=== PATIENT | female | born 1965 | race Caucasian/White ===

== ENCOUNTER → 2020-05-21 11:10 | Outpatient (BNVA) | payer OTHER, SELFPAY | PROVIDERS: PCP Internal Medicine; Referring Provider Internal Medicine; Visit Provider Internal Medicine | DX: Z76.89 Persons encountering health services in other specified circumstances (principal) ==

== ENCOUNTER 2020-07-10 20:12 | Emergency (ER) | payer OTHER, SELFPAY ==
--- NOTE | 2020-07-10 | ECG_ITS ---
Test Reason : GI BLEED Blood Pressure : / mmHG Vent. Rate : 048 BPM Atrial Rate : 048 BPM P-R Int : 126 ms QRS Dur : 078 ms QT Int : 464 ms P-R-T Axes : 070 065 063 degrees QTc Int : 414 ms Sinus bradycardia with Premature atrial complexes Otherwise normal ECG When compared with ECG of 31-JAN-2017 14:40, Premature atrial complexes are now Present Nonspecific T wave abnormality no longer evident in Inferior leads Nonspecific T wave abnormality, improved in Anterior leads Referred By: Generic ED Physician Electronically Signed By:JOSEPH ASHBY
[2020-07-10 20:26] VITALS: BP 133/67; PULSE 79; RESP 18; TEMP 36.6; O2SAT 100; BMI 25.7
[2020-07-10 20:51] LABS: Basophils Absolute Auto 0.1 X10*3/uL (0.0-0.2); Basophils Percent Auto 0.8 % (0-2); Eosinophils Absolute Auto 0.2 X10*3/uL (0.0-0.4); Eosinophils Percent Auto 3.4 % (0-4); Hematocrit 39.7 % (37-47); Hemoglobin 13.3 g/dl (12.0-16.0); Imm Gran Abs Auto 0.01 X10*3/uL (0.00-0.03); Imm Gran Pct Auto 0.2 % (0.0-0.4); Lymphocytes Absolute Auto 3.3 X10*3/uL (1.2-4.9); Lymphocytes Percent Auto 54.2 % (20-40); MANUAL DIFF FLAG NO; Mean Corpuscular HGB Conc 33.5 g/dl (31.0-35.0); Mean Corpuscular Hemoglobin 28.9 pg (27.0-33.0); Mean Corpuscular Volume 86.1 fL (80-98); Mean Platelet Volume 10.8 fL (9.4-12.3); Monocytes Absolute Auto 0.5 X10*3/uL (0.1-1.2); Monocytes Percent Auto 8.4 % (2-11); Platelet Count 262 X10*3/uL (160-400); Red Blood Count 4.61 X10*6/uL (4.20-5.50); Red Cell Distribution Width 13.2 % (11.0-16.0); White Blood Count 6.2 X10*3/uL (4.8-10.8)
[2020-07-10 21:20] LABS: Anion Gap 13 (12-20); Blood Urea Nitrogen 17 mg/dL (9-16); Calcium 8.8 mg/dL (8.4-10.2); Carbon Dioxide 28 mmol/L (22-29); Chloride 99 mmol/L (96-108); Creatinine Clr Calc Pharmacy 75.3; Estimated Glomerular Filt Rate > 60; Glucose Random 89 mg/dL (60-115); Lipase 57 U/L (8-78); Potassium 3.8 mmol/L (3.3-5.1); Sodium 136 mmol/L (135-145)
[2020-07-10 21:26] LABS: Troponin-I High Sensitivity < 3.5 ng/L (<3.5-17.0)
[2020-07-10 21:58] LABS: Glucose Urine UA NEG (NEG); Leukocyte Esterase Urine TRACE (NEG); Nitrite Urine NEG (NEG); PH 5.5 (5.0-8.0); Specific Gravity - Urine <= 1.005 (1.005-1.025); Urine Blood NEG (NEG); Urine Ketones 5 MG/DL (NEG); Urine Protein NEG (NEG-TRACE)
[2020-07-10 21:59] LABS: Appearance Urine CLEAR; Color Urine STRAW
[2020-07-10 22:06] LABS: Bacteria Urine TRACE /LPF; RBC Urine 0 /HPF (0); WBC Urine 0-2 /HPF (0-4)
== END 2020-07-10 23:17 | disposition left against medical advice (07) ==
PROVIDERS: Emergency Provider Emergency Medicine; PCP Internal Medicine
DX: R31.9 Hematuria, unspecified (principal)
CPT/HCPCS: 36415; 80048; 81001; 83690; 84484; 85025; 93005; 99282; 99283

== ENCOUNTER 2020-07-14 08:53 | Outpatient (REF) | payer OTHER, SELFPAY ==
[2020-07-14 10:16] LABS: Alanine Aminotransferase 9 U/L (0-31); Albumin Level 4.5 g/dL (3.5-5.0); Alkaline Phosphatase 52 U/L (39-117); Aspartate Amino Transferase 16 U/L (5-31); Bilirubin Direct 0.2 mg/dL (0.0-0.5); Bilirubin Total 0.7 mg/dL (0.0-1.0); Cholesterol 289 mg/dL; HDL Cholesterol 44 mg/dL; LDL Cholesterol Calculated 218 mg/dl; Total Protein 7.7 g/dL (6.5-8.0); Triglycerides 136 mg/dL
[2020-07-14 11:05] LABS: Estimated Average Glucose 123 mg/dL; Hemoglobin A1c % 5.9 %
[2020-07-15 09:07] LABS: LDL Cholesterol Direct 203 mg/dL (<100)
== END 2020-07-14 08:54 | disposition home or self-care (01) ==
LOC: HO.LAB 08:53
PROVIDERS: Absent Provider Internal Medicine; PCP Internal Medicine; Visit Provider Internal Medicine
DX: E78.5 Hyperlipidemia, unspecified (principal); E66.9 Obesity, unspecified; R73.03 Prediabetes; D35.2 Benign neoplasm of pituitary gland
CPT/HCPCS: 36415; 80061; 80076; 83036; 83721; 99212

== ENCOUNTER → 2020-07-15 07:40 | Outpatient (BNVA) | payer OTHER, SELFPAY | PROVIDERS: PCP Internal Medicine; Visit Provider Dietitian, Registered ==

== ENCOUNTER → 2020-08-19 11:12 | Outpatient (BNVA) | payer OTHER, SELFPAY | PROVIDERS: PCP Internal Medicine; Visit Provider Dietitian, Registered ==

== ENCOUNTER 2021-04-21 02:16 | Emergency (ER) | payer OTHER, SELFPAY ==
[2021-04-21 02:18] VITALS: BP 129/86; PULSE 62; RESP 15; TEMP 36.7; O2SAT 98; BMI 26.6
--- NOTE | 2021-04-21 03:28 | PC.NURSE ---
labs drawn to lab.
[2021-04-21 03:36] LABS: MANUAL DIFF FLAG NO
[2021-04-21 03:38] LABS: Basophils Absolute Auto 0.1 X10*3/uL (0.0-0.2); Basophils Percent Auto 0.9 % (0-2); Eosinophils Absolute Auto 0.2 X10*3/uL (0.0-0.4); Eosinophils Percent Auto 3.4 % (0-4); Hematocrit 39.4 % (37.0-47.0); Hemoglobin 12.9 g/dl (12.0-16.0); Imm Gran Abs Auto 0.01 X10*3/uL (0.00-0.03); Imm Gran Pct Auto 0.2 % (0.0-0.4); Lymphocytes Absolute Auto 3.1 X10*3/uL (1.2-4.9); Lymphocytes Percent Auto 52.7 % (20-40); Mean Corpuscular HGB Conc 32.7 g/dl (31.0-35.0); Mean Corpuscular Hemoglobin 28.5 pg (27.0-33.0); Mean Platelet Volume 10.7 fL (9.4-12.3); Monocytes Absolute Auto 0.6 X10*3/uL (0.1-1.2); Monocytes Percent Auto 9.8 % (2-11); Neutrophils Absolute Auto 1.9 x10*3/uL (2.0-8.3); Platelet Count 260 X10*3/uL (160-400); Red Blood Count 4.53 X10*6/uL (4.20-5.50); Red Cell Distribution Width 13.9 % (11.0-16.0); White Blood Count 5.8 X10*3/uL (4.8-10.8)
[2021-04-21 04:11] LABS: Alanine Aminotransferase 28 U/L (0-31); Albumin Level 4.5 g/dL (3.5-5.0); Alkaline Phosphatase 58 U/L (39-117); Anion Gap 17 (12-20); Aspartate Amino Transferase 29 U/L (5-31); Bilirubin Total 0.3 mg/dL (0.0-1.0); Blood Urea Nitrogen 16 mg/dL (9-16); Calcium 9.3 mg/dL (8.4-10.2); Carbon Dioxide 20 mmol/L (22-29); Chloride 105 mmol/L (96-108); Creatinine Clr Calc Pharmacy 67.8; Estimated Glomerular Filt Rate > 60; Glucose Random 118 mg/dL (60-115); Potassium 3.9 mmol/L (3.3-5.1); Sodium 138 mmol/L (135-145); Total Protein 8.1 g/dL (6.5-8.0)
--- NOTE | 2021-04-21 04:37 | ED.GENADULT ---
HPI - General Adult General Chief complaint: Allergic Reaction Stated complaint: allergic reaction Time Seen by Provider: 04/21/21 02:37 Source: patient Mode of arrival: ambulatory History of Present Illness HPI narrative: 55-year-old female presents with concerns regarding allergic reaction she states the fingertips both hands as well as her toes are having pain. She denies any fever, chills, lip/tongue/facial swelling and also denies any rash anywhere on her body. She denies any difficulty breathing, shortness of breath, or chest pain. She does have complaints specifically of the left thumb and index finger causing her pain and states that she spends her entire day driving. Related Data Previous Rx's Medication Instructions Recorded atorvastatin 20 mg tablet 20 mg PO BEDTIME 30 Days #30 tab 07/14/20 metformin 500 mg tablet,extended 500 mg PO BID 30 Days #60 tab 07/14/20 release 24hr Allergies Allergy/AdvReac Type Severity Reaction Status Date / Time fluticasone [Flonase] Allergy Unknown Unknown Verified 07/14/20 15:05 From FLONASE Allergy Severe HIVES Uncoded 07/14/20 15:05 Flonase Allergy Unknown Hives/Swell Uncoded 07/14/20 15:05 ing Review of Systems Review of Systems: Pertinent positives and negatives as stated in HPI 10 point review of symptoms is otherwise negative. [facility] Past Medical History Source: nursing notes reviewed Medical History Abdominal pain AFLP (acute fatty liver of ) Anxiety HLD (hyperlipidemia) Hot flashes Hypercholesterolemia Mammogram declined Melasma Overweight (BMI 25.0-29.9) Peripheral neuropathy Pituitary microadenoma Prediabetes Toe fracture, left Vitamin D deficiency Vitamin D deficiency Surgical History Hx of tubal ligation [place] teeth extracted Family History Family History Father CAD (coronary artery disease) Mother No problems noted. Social History Social History Alcohol intake: current Advance Directives: No Advance Directives Information Provided: Yes Patient : No Physical Exam Vital Signs: Vital Signs: Last Vital Signs Temp 98.1 F 04/21/21 02:18 Pulse 62 04/21/21 02:18 Resp 15 04/21/21 02:18 BP 129/86 04/21/21 02:18 Pulse Ox 98 04/21/21 02:18 Body Mass Index 26.6 VITAL SIGNS: Reviewed. GENERAL: Well developed, well nourished, in no acute distress. HEAD: Normocephalic/atraumatic EYES: PERRLA, EOMI OROPHARYNX: no oral lesions noted, posterior pharynx clear and non-erythematous without noted tonsillar enlargement/erythema/exudates, no facial/tongue/lip swelling NECK: Supple, no adenopathy LUNGS: Normal breath sounds. No adventitious sounds or accessory muscle use. SpO2<98> CARDIOVASCULAR: Regular rate and rhythm without noted murmurs, no JVD or lower extremity edema. ABDOMEN: Soft, non-tender, non-distended with bowel sounds. MUSCULOSKELETAL: No tenderness, deformities, or effusions noted on gross inspection. EXTREMITIES: No cyanosis, clubbing or edema. SKIN: Inspection of the skin reveals no rashes, NEUROLOGIC: Alert and oriented x 4. Strength and sensation to light touch were grossly intact x 4. Course Course Course Narrative: 55-year-old female with history and clinical presentation consistent with angioedema, urticaria anaphylaxis and instead the possibility carpal tunnel to the left wrist is a possibility. Basic labs were conducted on review there are no evidence electrolyte abnormalities that may better explain patient's neuropathic symptoms of pain to all toes and fingers. Patient is otherwise discharged home in stable condition with instructions follow-up with primary care provider for further evaluation and management. Medical Decision Making Lab Data Result diagrams: 04/21/21 03:28 04/21/21 03:28 Labs: Lab Results 04/21/21 04/21/21 Range/Units 03:28 03:28 WBC 5.8 (4.8-10.8) X10*3/uL RBC 4.53 (4.20-5.50) X10*6/uL Hgb 12.9 (12.0-16.0) g/dl Hct 39.4 (37.0-47.0) % MCV 87.0 (80.0-98.0) fL MCH 28.5 (27.0-33.0) pg MCHC 32.7 (31.0-35.0) g/dl RDW 13.9 (11.0-16.0) % Plt Count 260 (160-400) X10*3/uL MPV 10.7 (9.4-12.3) fL Immature Gran % (Auto) 0.2 (0.0-0.4) % Neut % (Auto) 33.0 L (45-73) % Lymph % (Auto) 52.7 H (20-40) % [place] % (Auto) 9.8 (2-11) % Eos % (Auto) 3.4 (0-4) % Baso % (Auto) 0.9 (0-2) % Lymph # (Auto) 3.1 (1.2-4.9) X10*3/uL [place] # (Auto) 0.6 (0.1-1.2) X10*3/uL Eos # (Auto) 0.2 (0.0-0.4) X10*3/uL Baso # (Auto) 0.1 (0.0-0.2) X10*3/uL Abs Immat Gran (auto) 0.01 (0.00-0.03) X10*3/uL Absolute Neuts (auto) 1.9 L (2.0-8.3) x10*3/uL Absolute Nucleated RBC 0.000 (0.0-0.012) X10*3/uL Nucleated RBC % (auto) 0.0 (0.0-0.2) /100WBC Sodium 138 (135-145) mmol/L Potassium 3.9 (3.3-5.1) mmol/L Chloride 105 (96-108) mmol/L Carbon Dioxide 20 L (22-29) mmol/L Anion Gap 17 (12-20) BUN 16 (9-16) mg/dL Creatinine 0.89 (0.5-1.4) mg/dL Estim Creat Clear Calc 67.8 Estimated GFR > 60 Random Glucose 118 H (60-115) mg/dL Calcium 9.3 (8.4-10.2) mg/dL Total Bilirubin 0.3 (0.0-1.0) mg/dL AST 29 D (5-31) U/L ALT 28 (0-31) U/L Alkaline Phosphatase 58 (39-117) U/L Total Protein 8.1 H (6.5-8.0) g/dL Albumin 4.5 (3.5-5.0) g/dL Discharge Plan Discharge Clinical Impression: Anxiety, Neuropathy Patient Disposition: Home, Self-Care Instructions: Peripheral Neuropathy (ED), Anxiety (ED) Additional Instructions: Follow-up with your primary care provider in the next 1-2 days for re-evaluation further outpatient management. Return to the ER for acute worsening of symptoms. Prescriptions: No Action metformin 500 mg tablet extended release 24hr 500 mg PO BID 30 Days Qty: 60 RF: 11 atorvastatin 20 mg tablet 20 mg PO BEDTIME 30 Days Qty: 30 RF: 11 Referrals: Po,Nancy Duckworth MD [Primary Care Provider] - 2 days
--- NOTE | 2021-04-21 04:40 | PC.NURSE ---
PT SLEEPING IN STRECHER AWATING FOR DISPO. PT IN NAD. RESPIRATIONS EASY, N/L. SKIN W/D. WILL CONTINUE TO MONITOR.
== END 2021-04-21 05:13 | disposition home or self-care (01) ==
PROVIDERS: Emergency Provider Student in an Organized Health Care Education/Training Program; PCP Internal Medicine
DX: F41.1 Generalized anxiety disorder (principal); G62.9 Polyneuropathy, unspecified; Z79.899 Other long term (current) drug therapy
CPT/HCPCS: 36415; 80053; 85025; 99283

== ENCOUNTER 2021-05-03 17:22 | Emergency (ER) | payer OTHER, SELFPAY ==
[2021-05-03 20:31] VITALS: BP 155/96; PULSE 82; RESP 18; TEMP 36.3; O2SAT 98; BMI 26.6
--- NOTE | 2021-05-03 21:43 | ED_ITS ---
HPI - Skin/Abscess/Foreign Bdy General Chief complaint: Skin/Abscess/Foreign Body Stated complaint: rash - hands Time Seen by Provider: 05/03/21 21:43 Source: patient Mode of arrival: ambulatory History of Present Illness HPI narrative: 55-year-old female presents after she inadvertently tipped over a bottle of hydrogen peroxide onto her left hand and states that afterwards her fingers became very dry, whitish in appearance and swollen. Patient self- treated by washing her hands and applied aloe vera with good resolution of all symptoms and only mild burning feeling at this time. Related Data Previous Rx's Medication Instructions Recorded atorvastatin 20 mg tablet 20 mg PO BEDTIME 30 Days #30 tab 07/14/20 metformin 500 mg tablet,extended 500 mg PO BID 30 Days #60 tab 07/14/20 release 24hr Allergies Allergy/AdvReac Type Severity Reaction Status Date / Time fluticasone [Flonase] Allergy Unknown Unknown Verified 05/03/21 20:30 From FLONASE Allergy Severe HIVES Uncoded 05/03/21 20:30 Flonase Allergy Unknown Hives/Swell Uncoded 05/03/21 20:30 ing Review of Systems Review of Systems: Pertinent positives and negatives as stated in HPI 10 point review of systems is otherwise negative. [facility] Past Medical History Source: nursing notes reviewed Medical History Abdominal pain AFLP (acute fatty liver of ) Anxiety HLD (hyperlipidemia) Hot flashes Hypercholesterolemia Mammogram declined Melasma Overweight (BMI 25.0-29.9) Peripheral neuropathy Pituitary microadenoma Prediabetes Toe fracture, left Vitamin D deficiency Vitamin D deficiency Surgical History Hx of tubal ligation [place] teeth extracted Family History Family History Father CAD (coronary artery disease) Mother No problems noted. Social History Social History Alcohol intake: current Advance Directives: No Physical Exam Vital Signs: Vital Signs: Last Vital Signs Temp 97.3 F 05/03/21 20:31 Pulse 82 05/03/21 20:31 Resp 18 05/03/21 20:31 BP 155/96 H 05/03/21 20:31 Pulse Ox 98 05/03/21 20:31 Body Mass Index 26.6 VITAL SIGNS: Reviewed. GENERAL: Well developed, well nourished, in no acute distress. HEAD: Normocephalic/atraumatic EYES: PERRLA, EOMI OROPHARYNX: no oral lesions noted, posterior pharynx clear LUNGS: Normal breath sounds. No adventitious sounds or accessory muscle use. SpO2<98> CARDIOVASCULAR: Regular rate and rhythm without noted murmurs ABDOMEN: Soft, non-tender, non-distended with bowel sounds. BILATERAL HANDS: Skin is normal in appearance with good pink color, no discoloration noted, good capillary refill, no evidence of desquamation NEUROLOGIC: Alert and oriented x 4. Course Course Course Narrative: 55-year-old female with history and clinical presentation consistent with mild irritant to her hands from the hydrogen peroxide, however patient self treated appropriately and her skin appears to be in good condition. Patient was reassured and instructed to use an emollient and follow-up with the primary care provider in the morning. Discharge Plan Discharge Clinical Impression: Skin irritation due to topical agent Patient Disposition: Home, Self-Care Instructions: Contact Dermatitis (ED) Additional Instructions: Recommend application of Eucerin or other strong emollient Follow up with your primary care doctor in the morning. Return to the ER for acute worsening of symptoms. Prescriptions: No Action metformin 500 mg tablet extended release 24hr 500 mg PO BID 30 Days Qty: 60 RF: 11 atorvastatin 20 mg tablet 20 mg PO BEDTIME 30 Days Qty: 30 RF: 11 Referrals: Po,Nancy Duckworth MD [Primary Care Provider] - 2 days
== END 2021-05-03 22:16 | disposition home or self-care (01) ==
PROVIDERS: Emergency Provider Student in an Organized Health Care Education/Training Program; PCP Internal Medicine
DX: L24.89 Irritant contact dermatitis due to other agents (principal)
CPT/HCPCS: 99283

== ENCOUNTER 2021-06-26 14:15 | Outpatient (REF) | payer OTHER, SELFPAY ==
[2021-06-26 15:16] LABS: Hematocrit 39.4 % (37.0-47.0); Mean Corpuscular Hemoglobin 28.7 pg (27.0-33.0); Mean Platelet Volume 11.1 fL (9.4-12.3); Platelet Count 283 X10*3/uL (160-400); Red Blood Count 4.53 X10*6/uL (4.20-5.50); Red Cell Distribution Width 13.3 % (11.0-16.0); White Blood Count 4.8 X10*3/uL (4.8-10.8)
[2021-06-26 15:35] LABS: Alanine Aminotransferase 10 U/L (0-31); Albumin Level 4.4 g/dL (3.5-5.0); Alkaline Phosphatase 60 U/L (39-117); Anion Gap 12 (12-20); Aspartate Amino Transferase 17 U/L (5-31); Bilirubin Total 0.2 mg/dL (0.0-1.0); Blood Urea Nitrogen 17 mg/dL (9-16); Calcium 9.9 mg/dL (8.4-10.2); Carbon Dioxide 32 mmol/L (22-29); Chloride 102 mmol/L (96-108); Estimated Glomerular Filt Rate > 60; Glucose Random 122 mg/dL (60-115); Potassium 4.3 mmol/L (3.3-5.1); Sodium 142 mmol/L (135-145); Total Protein 7.9 g/dL (6.5-8.0)
[2021-06-26 15:56] LABS: Vitamin D 25-OH Total 29.7 ng/mL (>30)
[2021-06-26 16:09] LABS: Folate 10.4 ng/mL (> or = 4.0); Vitamin B12 295 pg/mL (200-900)
== END 2021-06-26 14:16 | disposition home or self-care (01) ==
LOC: HO.LAB 14:15
PROVIDERS: PCP Internal Medicine; Visit Provider Nurse Practitioner Family
DX: R53.83 Other fatigue (principal); E55.9 Vitamin D deficiency, unspecified
CPT/HCPCS: 36415; 80053; 82306; 82607; 82746; 84443; 85027

== ENCOUNTER 2022-03-18 13:00 | Emergency (ER) | payer OTHER, SELFPAY ==
--- NOTE | ~2022-03-18 | XR_ITS ---
EXAMINATION: XR ABDOMEN KUB CLINICAL INDICATION: Evaluate for constipation COMPARISON: None TECHNIQUE: AP view of the abdomen. FINDINGS: The bowel pattern is felt to be nonobstructing. Probable pelvic phleboliths are noted. No significant stool burden is seen XR/XR KUB IMPRESSION: Nonobstructive bowel pattern
[2022-03-18 13:12] VITALS: BP 122/61; PULSE 58; RESP 18; TEMP 35.7; O2SAT 96; BMI 28.8
[2022-03-18 13:36] LABS: MANUAL DIFF FLAG NO
[2022-03-18 13:39] LABS: Basophils Percent Auto 0.6 % (0-2); Eosinophils Absolute Auto 0.1 X10*3/uL (0.0-0.4); Eosinophils Percent Auto 1.1 % (0-4); Hematocrit 39.2 % (37.0-47.0); Hemoglobin 13.1 g/dl (12.0-16.0); Imm Gran Abs Auto 0.01 X10*3/uL (0.00-0.03); Imm Gran Pct Auto 0.2 % (0.0-0.4); Lymphocytes Absolute Auto 2.2 X10*3/uL (1.2-4.9); Lymphocytes Percent Auto 33.3 % (20-40); Mean Corpuscular HGB Conc 33.4 g/dl (31.0-35.0); Mean Corpuscular Hemoglobin 28.2 pg (27.0-33.0); Mean Corpuscular Volume 84.3 fL (80.0-98.0); Mean Platelet Volume 10.9 fL (9.4-12.3); Monocytes Absolute Auto 0.6 X10*3/uL (0.1-1.2); Monocytes Percent Auto 8.3 % (2-11); Neutrophils Absolute Auto 3.8 x10*3/uL (2.0-8.3); Neutrophils Percent Auto 56.5 % (45-73); Platelet Count 283 X10*3/uL (160-400); Red Blood Count 4.65 X10*6/uL (4.20-5.50); Red Cell Distribution Width 13.2 % (11.0-16.0); White Blood Count 6.7 X10*3/uL (4.8-10.8)
[2022-03-18 13:41] LABS: Appearance Urine Clear; Color Urine Yellow; Glucose Urine UA Negative (Negative); Leukocyte Esterase Urine Small (1+) (Negative); Nitrite Urine Negative (Negative); Specific Gravity - Urine 1.015 (1.005-1.025); UMIC TRIGGER UACC YES; Urine Blood Small (1+) (Negative); Urine Ketones >=160 mg/dL (Negative); Urine Protein Trace mg/dL (Neg-Trace)
[2022-03-18 13:48] LABS: Bacteria Urine None Seen (None Seen); Granular Casts Urine Present; Hyaline Casts Urine >20 /LPF (0-2); RBC Urine 0-2 /HPF (0-2); UACC Culture Trigger YES
[2022-03-18 14:08] LABS: Alanine Aminotransferase 15 U/L (0-31); Albumin Level 4.8 g/dL (3.5-5.0); Alkaline Phosphatase 68 U/L (39-117); Anion Gap 24 (12-20); Aspartate Amino Transferase 32 U/L (5-31); Bilirubin Direct 0.3 mg/dL (0.0-0.5); Bilirubin Total 1.2 mg/dL (0.0-1.0); Blood Urea Nitrogen 13 mg/dL (9-16); Calcium 9.3 mg/dL (8.4-10.2); Carbon Dioxide 16 mmol/L (22-29); Chloride 98 mmol/L (96-108); Creatinine Clr Calc Pharmacy 62.6; Estimated Glomerular Filt Rate 58; Glucose Random 66 mg/dL (60-115); Lipase 25 U/L (8-78); Potassium 3.8 mmol/L (3.3-5.1); Sodium 134 mmol/L (135-145); Total Protein 8.4 g/dL (6.5-8.0)
[2022-03-18 16:17] VITALS: BP 113/68; PULSE 56; RESP 18; TEMP 36; O2SAT 99
--- NOTE | 2022-03-18 16:49 | ED_ITS ---
HPI - General Adult General Chief complaint: General Medical Stated complaint: Constipated, possible liver issues? Time Seen by Provider: 03/18/22 16:35 Source: patient Mode of arrival: ambulatory Limitations: no limitations History of Present Illness HPI narrative: Patient comes to the emergency room with multiple complaints. Patient complaining of stinky discharge coming home from her eyes, going down her nose into her throat. Denies fever chills, no sore throat, no runny nose, no sinus pain. Also, patient complaining that earlier this week, patient says she had yellowing of the sclera. Patient took home remedies, and went to a store to get ?Sacred orange peel and tried a home remedy with water and lemon which he tried for several days. Patient states that shortly after drinking some itch laminae, she had burning with urination and in her flanks, no hematuria Also, patient states that she went to the store to get some home remedy, states she was given the wrong one, does not know the name, then she became very bloated and constipated Related Data Previous Rx's Medication Instructions Recorded cholecalciferol (vitamin D3) 25 25 mcg PO DAILY #90 tabs 07/01/21 mcg (1,000 unit) tablet levofloxacin 500 mg tablet 500 mg PO DAILY #9 tabs 03/18/22 polyethylene glycol 3350 17 17 g PO DAILY PRN constipation 03/18/22 gram/dose oral powder (Miralax) #119 grams Allergies Allergy/AdvReac Type Severity Reaction Status Date / Time fluticasone [Flonase] Allergy Unknown Unknown Verified 06/26/21 13:42 From FLONASE Allergy Severe HIVES Uncoded 06/26/21 13:42 Flonase Allergy Unknown Hives/Swell Uncoded 06/26/21 13:42 ing Review of Systems Review of Systems: Constitutional : No Weight loss, No Fever, No Chills, No Night Sweats, No Fatigue, No Malaise ENT/Mouth : No Hearing loss, No Ear Pain, No Nasal Congestion, No Sinus Pain, No Hoarseness, No sore throat, No Rhinorrhea, No Swallowing Difficulty Eyes: No Eye Pain, No Swelling, No Redness, No Foreign Body, complaining of ?Stinky discharge , No Vision Changes Cardiovascular : No Chest Pain, No SOB, No Dyspnea on Exertion, No Orthopnea, No Edema, No Palpitations Respiratory : No Cough, No Sputum, No Wheezing, No Smoke Exposure, No Dyspnea Gastrointestinal : No Nausea, No Vomiting, No Diarrhea, complaining of bloating and constipation rate Genitourinary : no irregular bleeding, complaining of dysuria, No Urinary Frequency, No Hematuria, No Urinary Incontinence, No Urgency, No Flank Pain, No Urinary Flow Changes, No Hesitancy Musculoskeletal : No joint pain, No Myalgias, No Joint Swelling Skin : No Skin Lesions, No rash Neuro : No Weakness, No Numbness, No Paresthesias, No Loss of Consciousness, No Dizziness, No Headache Psych : No Anxiety/Panic, No Depression, No SI/HI/AH/VH, No Social Issues, Heme/Lymph: No Bruising, No Bleeding,No Lymphadenopathy Endocrine : No Polyuria, No Polydipsia, No Temperature Intolerance PMFSH Past Medical History Medical History AFLP (acute fatty liver of ) Hot flashes Hypercholesterolemia Mammogram declined Melasma Overweight (BMI 25.0-29.9) Peripheral neuropathy Pituitary microadenoma Toe fracture, left Vitamin D deficiency Surgical History Hx of tubal ligation [place] teeth extracted Family History Family History Father CAD (coronary artery disease) Mother No problems noted. Social History Social History Housing: Apartment Alcohol intake: never Patient Tobacco Use Status: Never used Tobacco e-Cigarette/Vaping Use: Never Used Second Hand Smoke Exposure: No Advance Directives: No Advance Directives Information Provided: No Patient : No Current occupational status: employed Physical Exam ED Vital Signs: Vital Signs - 24 hr 03/18/22 13:12 03/18/22 16:17 03/18/22 16:55 Temperature 96.2 F L 96.8 F 98.1 F Pulse Rate 58 56 51 Respiratory Rate 18 18 16 Blood Pressure 122/61 113/68 117/60 Pulse Oximetry 96 99 98 Oxygen Delivery Method Room Air Room Air BMI result Body Mass Index 28.8 Const Other: Appearance: Alert. Oriented X3. No acute distress. Eyes: Pupils equal, round and reactive to light. Sclera look normal ENT: Pharynx normal. Neck: Normal inspection. Neck supple. No lymph nodes noted. No crepitus CVS: Normal heart rate and rhythm. Pulses normal. Normal S1 and S2 Respiratory: No respiratory distress. Breath sounds normal. No Wheezing. No rales Abdomen: Soft and nontender. No rigidity. No distention. Skin: Skin warm and dry. Normal skin color. Normal skin turgor. Extremities: No lower extremity edema. No Lacerations. No Rash Neuro: Oriented X 3. No motor deficit. No sensory deficit. Moving all extremities. No slurred speech. CN 2 through 12 grossly intact Psych: calm, cooperative, normal affect Course Course Course Narrative: Patient's physical exam is normal. I discussed the labs with the patient. Patient has a UTI. Patient describes some burning in the flanks, we will treat as pyelonephritis. Patient does not have any fever chills, blood pressure is normal. Sepsis is not suspected. Patient given 1 dose of levofloxacin KUB shows a nonobstructive pattern. Medical Decision Making Lab Data Result diagrams: 03/18/22 13:31 03/18/22 13:31 Labs: Lab Results 03/18/22 03/18/22 03/18/22 Range/Units 13:31 13:31 13:31 WBC 6.7 (4.8-10.8) X10*3/uL RBC 4.65 (4.20-5.50) X10*6/uL Hgb 13.1 (12.0-16.0) g/dl Hct 39.2 (37.0-47.0) % MCV 84.3 (80.0-98.0) fL MCH 28.2 (27.0-33.0) pg MCHC 33.4 (31.0-35.0) g/dl RDW 13.2 (11.0-16.0) % Plt Count 283 (160-400) X10*3/uL MPV 10.9 (9.4-12.3) fL Immature Gran % (Auto) 0.2 (0.0-0.4) % Neut % (Auto) 56.5 (45-73) % Lymph % (Auto) 33.3 (20-40) % [place] % (Auto) 8.3 (2-11) % Eos % (Auto) 1.1 (0-4) % Baso % (Auto) 0.6 (0-2) % Lymph # (Auto) 2.2 (1.2-4.9) X10*3/uL [place] # (Auto) 0.6 (0.1-1.2) X10*3/uL Eos # (Auto) 0.1 (0.0-0.4) X10*3/uL Baso # (Auto) 0.0 (0.0-0.2) X10*3/uL Abs Immat Gran (auto) 0.01 (0.00-0.03) X10*3/uL Absolute Neuts (auto) 3.8 (2.0-8.3) x10*3/uL Absolute Nucleated RBC 0.000 (0.0-0.012) X10*3/uL Nucleated RBC % (auto) 0.0 (0.0-0.2) /100WBC Sodium 134 L (135-145) mmol/L Potassium 3.8 (3.3-5.1) mmol/L Chloride 98 (96-108) mmol/L Carbon Dioxide 16 L (22-29) mmol/L Anion Gap 24 H (12-20) BUN 13 (9-16) mg/dL Creatinine 0.99 (0.5-1.4) mg/dL Estim Creat Clear Calc 62.6 Estimated GFR 58 Random Glucose 66 (60-115) mg/dL Calcium 9.3 D (8.4-10.2) mg/dL Total Bilirubin 1.2 H (0.0-1.0) mg/dL Direct Bilirubin 0.3 (0.0-0.5) mg/dL AST 32 H D (5-31) U/L ALT 15 (0-31) U/L Alkaline Phosphatase 68 (39-117) U/L Total Protein 8.4 H (6.5-8.0) g/dL Albumin 4.8 (3.5-5.0) g/dL Lipase 25 (8-78) U/L Urine Color Yellow Urine Appearance Clear Urine pH 5.0 (5.0-9.0) Ur Specific [place] 1.015 (1.005-1.025) Urine Protein Trace (Neg-Trace) mg/dL Urine Glucose (UA) Negative (Negative) mg/dL Urine Ketones >=160 (Negative) mg/dL Urine Blood Small (1+) H (Negative) Urine Nitrite Negative (Negative) Ur Leukocyte Esterase Small (1+) H (Negative) Urine RBC 0-2 (0-2) /HPF Urine WBC 6-10 H (0-5) /HPF Ur Squamous Epith Cells 3-5 (0-2) /HPF Urine Bacteria None Seen (None Seen) Hyaline Casts >20 (0-2) /LPF Granular Casts Present Imaging Data KUB: Radiologist's impression: FINDINGS: The bowel pattern is felt to be nonobstructing. Probable pelvic phleboliths are noted. No significant stool burden is seen XR/XR KUB IMPRESSION: Nonobstructive bowel pattern Discharge Plan Discharge Clinical Impression: UTI (urinary tract infection), Constipation Patient Disposition: Home, Self-Care Instructions: Constipation (ED), Urinary Tract Infection in Women (ED) Additional Instructions: Please follow-up with your primary care physician tomorrow. If you have any worsening or new symptoms, please return to the emergency room or call 911 Prescriptions: New levofloxacin 500 mg tablet 500 mg PO DAILY Qty: 9 0RF polyethylene glycol 3350 [Miralax] 17 gram/dose powder 17 g PO DAILY PRN (Reason: constipation) Qty: 119 0RF No Action cholecalciferol (vitamin D3) 25 mcg (1,000 unit) tablet 25 mcg PO DAILY Qty: 90 0RF
[2022-03-18 16:55] VITALS: BP 117/60; PULSE 51; RESP 16; TEMP 36.7; O2SAT 98
--- NOTE | 2022-03-18 17:02 | PC.NURSE ---
patient a/ox4 . pearrla . sclera light yellow . heart rate regular at 58 beats per minute . lungs clear .abdomen soft , distended . hypoactive bowel sounds noted throughout . patient preformed an enema to help move her bowels two days ago and reports a large amount of liquid BM , prior to that she reports 5 days of no bowel movement . Patient has rebound tenderness in lower abdomen on palpation . patient is aware of plan of care .
[2022-03-18] MEDS: levoFLOXacin 500 MG TABLET PO (17:15)
== END 2022-03-18 19:09 | disposition home or self-care (01) ==
PROVIDERS: Emergency Provider Emergency Medicine; PCP Internal Medicine
DX: N39.0 Urinary tract infection, site not specified (principal); K59.00 Constipation, unspecified
CPT/HCPCS: 36415; 74018; 80053; 81001; 82248; 83690; 85025; 87086; 99283; 99284

== ENCOUNTER 2022-10-05 15:30 | Outpatient (REF) | payer OTHER, SELFPAY ==
--- NOTE | ~2022-10-05 | XR_ITS ---
EXAMINATION: XR CHEST CLINICAL INFORMATION: M54.9 - Dorsalgia, unspecified COMPARISON: Chest radiographs 08/28/2019, 03/27/2014 TECHNIQUE: 2 views of the chest were obtained. FINDINGS: The lungs are clear. There is no airspace consolidation or groundglass opacity or effusion. Heart size normal. No pneumothorax or pleural reaction. The costophrenic sulci are clear. Heart size normal. The hilar and mediastinal contours and bony structures are unremarkable. XR/XR chest 2V IMPRESSION: Unremarkable examination.
== END 2022-10-05 15:31 | disposition home or self-care (01) ==
LOC: HO.HMGCX 15:30
PROVIDERS: PCP Internal Medicine; Visit Provider Internal Medicine
DX: M54.9 Dorsalgia, unspecified (principal)
CPT/HCPCS: 71046

== ENCOUNTER 2023-04-06 21:33 | Emergency (ER) | payer OTHER, SELFPAY ==
[2023-04-06 21:39] VITALS: BP 139/91; PULSE 80; RESP 20; TEMP 36.6; O2SAT 97; BMI 27.8
[2023-04-06 23:01] VITALS: BP 130/79; PULSE 80; RESP 16; TEMP 36.4; O2SAT 97
--- NOTE | 2023-04-07 00:21 | ED_ITS ---
HPI - General Adult General Chief complaint: Upper Respiratory Symptoms Stated complaint: Congestion Time Seen by Provider: 04/07/23 00:10 Source: patient Mode of arrival: ambulatory Limitations: no limitations History of Present Illness HPI narrative: 57 year old female with PMH of [place], impaired glucose tolerance, and sinusitis presents for congestion for 3 weeks. She states she has had a productive cough a couple of weeks ago that became less intense, but she has been experiencing lingering mucus production. She states she attempted a nasal rinse with saline, salt water, and iodine yesterday. She reports relief shortly after this but has been having worsening symptoms since, including productive cough, sinus pressure headache, and yellow, thick nasal drainage. She reports chills, malaise, and wheezing for the past 3 weeks, but denies fever, shortness of breath, or sore throat. She has taken OTC mucus relief today with no relief. Related Data Home Medications Medication Instructions Recorded Confirmed triprolidine-pseudoephedrine 2.5 1 tab PO Q4-6H PRN 08/20/22 10/05/22 mg-60 mg tablet Previous Rx's Medication Instructions Recorded cholecalciferol (vitamin D3) 25 25 mcg PO DAILY #90 tabs 07/01/21 mcg (1,000 unit) tablet polyethylene glycol 3350 17 17 g PO DAILY PRN constipation 03/18/22 gram/dose oral powder (Miralax) #119 grams cetirizine 10 mg tablet 10 mg PO DAILY PRN allergy 08/20/22 symptoms 30 days #30 tabs doxycycline monohydrate 100 mg 100 mg PO BID 7 days #14 caps 08/20/22 capsule azithromycin 250 mg tablet See Rx Instructions PO .COMPLEX #6 04/07/23 tabs prednisone 20 mg tablet 40 mg (2 x 20 mg) PO DAILY #10 tabs 04/07/23 Allergies Allergy/AdvReac Type Severity Reaction Status Date / Time fluticasone [Flonase] Allergy Unknown Unknown Verified 04/06/23 21:38 From FLONASE Allergy Severe HIVES Uncoded 04/06/23 21:38 Flonase Allergy Unknown Hives/Swell Uncoded 04/06/23 21:38 ing Review of Systems Constitutional: Constitutional: Reports chills, Denies fever(s), Reports headache(s) and Reports malaise ENT: Reports headache(s), Reports nasal congestion, Reports nasal discharge, Reports sinus pressure and Denies sore throat Cardiovascular: Cardiovascular: Denies chest pain and Denies dyspnea Respiratory: Respiratory: Reports change in phlegm color, Reports chest congestion, Reports cough, Denies dyspnea and Reports wheezing Gastrointestinal: Gastrointestinal: Denies abdominal pain, Denies diarrhea, Denies nausea and Denies vomiting Neurologic: Reports headache(s) Allergic/Immunologic: Allergic/Immunologic: Reports wheezing PMFSH Past Medical History Medical History AFLP (acute fatty liver of ) Hot flashes Hypercholesterolemia Mammogram declined Melasma Overweight (BMI 25.0-29.9) Peripheral neuropathy Pituitary microadenoma Toe fracture, left Vitamin D deficiency Surgical History Hx of tubal ligation [place] teeth extracted Family History Family History Father CAD (coronary artery disease) Mother No problems noted. Social History Social History Housing: Apartment Alcohol intake: never Patient Tobacco Use Status: Never used Tobacco e-Cigarette/Vaping Use: Never Used Second Hand Smoke Exposure: No Advance Directives: No Advance Directives Information Provided: Yes Current occupational status: employed Physical Exam ED Vital Signs: Vital Signs - 24 hr 04/06/23 21:39 04/06/23 23:01 Temperature 97.8 F 97.5 F Pulse Rate 80 80 Respiratory Rate 20 16 Blood Pressure 139/91 H 130/79 Pulse Oximetry 97 97 Oxygen Delivery Method Room Air Room Air BMI result Body Mass Index 27.8 Const General: cooperative, comfortable and no acute distress Orientation/consciousness: patient oriented x3 Limitations: no limitations HENMT Head: Yes normocephalic and Yes atraumatic General nose exam: Normal external nose present (erythema around nares), Normal nasal mucous membranes and turbinates present and No nasal discharge present Face and sinus: Yes sinuses nontender Throat: Yes posterior oropharynx normal Eyes Conjunctivae: conjunctivae normal Sclerae: sclerae normal Corneas: corneas normal Pupils: Equal, round and reactive pupils present Neck Neck: Yes no lymphadenopathy Resp Effort & Inspection: normal respiratory effort Auscultation: wheezes expiratory wheezes and scattered wheezes Cardio Rate: regular rate Rhythm: regular rhythm Neuro General: patient oriented x3 Cranial nerves: Yes Equal, round and reactive pupils present Medical Decision Making Differential Diagnosis Differential Diagnoses: The differential diagnosis associated with the presentation includes sinusitis pneumonia viral syndrome covid-19 asthma Lab Data Labs: Lab Results 04/07/23 Range/Units 01:27 COVID-19 ([facility]) Negative (Negative) COVID-19 Clin Com See Note Influenza Type A (ALLY) Negative (Negative) Influenza Type B (ALLY) Negative (Negative) Influenza A & B Note See Note Discharge Plan Discharge Clinical Impression: Acute sinusitis Patient Disposition: Home, Self-Care Instructions: Sinusitis (ED) Additional Instructions: Take the antibiotics as prescribed pain Take the prednisone as prescribed. You may use Afrin 2 sprays up to twice daily as needed for congestion Follow-up with your primary doctor Prescriptions: New azithromycin 250 mg tablet See Rx Instructions .ROUTE .COMPLEX Qty: 6 0RF Rx Instructions: For 250 mg dose pack: take 500 mg today (day 1), then 250 mg for 4 days (days 2-5) prednisone 20 mg tablet 40 mg PO DAILY Qty: 10 0RF No Action cholecalciferol (vitamin D3) 25 mcg (1,000 unit) tablet 25 mcg PO DAILY Qty: 90 0RF polyethylene glycol 3350 [Miralax] 17 gram/dose powder 17 g PO DAILY PRN (Reason: constipation) Qty: 119 0RF triprolidine-pseudoephedrine 2.5-60 mg tablet 1 tab PO Q4-6H PRN Rx Instructions: DNExceed 4 doses/24h doxycycline monohydrate 100 mg capsule 100 mg PO BID 7 Days Qty: 14 0RF cetirizine 10 mg tablet 10 mg PO DAILY PRN (Reason: allergy symptoms) 30 Days Qty: 30 0RF Stand Alone Forms: Work/School Release
[2023-04-07 01:45] VITALS: BP 132/82; PULSE 73; RESP 18; O2SAT 98
[2023-04-07 01:47] LABS: COVID-19 Test Negative (Negative); IDNOW Serial# BCCEAD1C
[2023-04-07 01:48] LABS: IDNOW Serial# 08D9AD1C; Influenza A Negative (Negative); Influenza B2 Negative (Negative)
[2023-04-07] MEDS: Oxymetazoline HCl 0.05 % Nasal 15 ML SPRAY 1 SPRAY NOSTRIL-B (02:01)
== END 2023-04-07 02:05 | disposition home or self-care (01) ==
PROVIDERS: Physician Assistant; Emergency Provider Emergency Medicine; PCP Internal Medicine
DX: J01.90 Acute sinusitis, unspecified (principal); Z11.52 Encounter for screening for COVID-19; E78.00 Pure hypercholesterolemia, unspecified; Z79.899 Other long term (current) drug therapy
CPT/HCPCS: 87502; 87635; 99283; 99284

== ENCOUNTER 2023-12-18 01:59 | Emergency (ER) | payer OTHER, SELFPAY ==
--- NOTE | 2023-12-18 | ECG_ITS ---
Test Reason : dizziness Blood Pressure : / mmHG Vent. Rate : 049 BPM Atrial Rate : 049 BPM P-R Int : 138 ms QRS Dur : 080 ms QT Int : 446 ms P-R-T Axes : 052 010 018 degrees QTc Int : 402 ms Sinus bradycardia Otherwise normal ECG When compared to the previous EKG of No significant changes seen Referred By: Generic ED Physician Electronically Signed By:Ld Reddy
--- NOTE | ~2023-12-18 | CT_ITS ---
EXAMINATION: CT ANGIOGRAM HEAD CT ANGIOGRAM NECK CLINICAL INFORMATION: Dizziness. Posterior cerebrovascular accident. COMPARISON: CT head from 11/17/2016. TECHNIQUE: Initial noncontrast director of scout work imaging of the head and neck was performed. Noncontrast head CT was also performed. Test bolus sequences followed by intravenous administration 65 mL of Omnipaque 350. Helical imaging was performed in the axial plane from the aortic arch to the skull vertex. Delayed postcontrast imaging of the head was also performed. The data was processed at the medical office technologist's workstation for generation of MIP sequences. Angled MIPs and volume rendered reformatted images were also generated at an offline 3D workstation. Stenoses are assessed in accordance with NASCET criteria unless otherwise indicated. This CT examination was performed using dose optimization techniques as appropriate, variously including the following: *Automated exposure control. *Adjustment of mA and/or kV according to patient size (this includes techniques or standardized protocols for targeted exams where dose is matched to indication/reason for exam; i.e. extremities or head). *Use of iterative reconstruction technique. DLP: 2115 mGy-cm FINDINGS: CT Head: There is no evidence of acute intracranial hemorrhage or edematous territorial infarction. Rodríguez-white matter differentiation is preserved. There is no abnormal attenuation within the brain parenchyma. The ventricles are normal in morphology and size. No evidence for obstructive hydrocephalus. No abnormal mass effect or midline shift. No extra-axial fluid collections. No pathologic intra-axial enhancement or regional oligemia. No acute soft tissue or osseous abnormalities. Mild mucosal thickening of the paranasal sinuses. The mastoid air cells and middle ear cavities are clear. CT Neck: The thyroid gland and remaining cervical soft tissues are within normal limits. Straightening of the normal cervical lordosis. Advanced degenerative disc disease at C6-C7. Moderate degenerative disc disease at C5-C6 and C7-T1. Mild degenerative disc disease at all additional levels. Facet and uncovertebral joint arthropathy leads to osseous encroachment on the neural foramina at C6-C7. CT Upper Chest: The visualized lung apices and upper mediastinum are within normal limits. Neck CTA: Aortic Arch: Normal contour and caliber with mild calcific atherosclerotic disease. Classic 3 vessel branching pattern of the aortic arch. Great Vessel Origins: No significant stenosis of the branch origins. Right Common Carotid Artery: No focal stenosis or occlusion. Cervical Right Internal Carotid Artery: Normal opacification without focal stenosis or occlusion. Left Common Carotid Artery: No focal stenosis or occlusion. Cervical Left Internal Carotid Artery: Normal opacification without focal stenosis or occlusion. Cervical Right Vertebral Artery: Co-dominant. No focal stenosis or occlusion. Cervical Left Vertebral Artery: Co-dominant. No focal stenosis or occlusion. Brain CTA: Intracranial Internal Carotid Arteries: No focal stenosis or occlusion. Right Anterior Cerebral Artery: Normal A1 segment. Normal opacification of the distal JOSH segments. Left Anterior Cerebral Artery: Normal A1 segment. Normal opacification of the distal JOSH segments. Anterior Communicating Artery: Normal. Right Middle Cerebral Artery: Normal M1 segment of the MCA without focal stenosis or occlusion. Normal arborization of the distal segments. Left Middle Cerebral Artery: Normal M1 segment of the MCA without focal stenosis or occlusion. Normal arborization of the distal segments. Right Vertebral Artery: Normal V4 segment. Normal opacification of the proximal segments of the posterior inferior cerebellar artery. Left Vertebral Artery: Normal V4 segment. Normal opacification of the proximal segments of the posterior inferior cerebellar artery. Basilar Artery: Normal without focal stenosis or occlusion. Normal appearance of the proximal superior cerebellar arteries. Right Posterior Cerebral Artery: Normal P1 segment. Normal opacification of the distal STAFFING ASSOCIATE segments. Left Posterior Cerebral Artery: Normal P1 segment. Normal opacification of the distal STAFFING ASSOCIATE segments. Normal opacification of the superior sagittal, straight, transverse, and sigmoid sinuses. CT/CT angio head neck IMPRESSION: 1. No evidence of acute intracranial hemorrhage or edematous territorial infarction. 2. CTA of the head and neck without proximal occlusion or flow-limiting stenosis.
[2023-12-18 02:23] VITALS: BP 153/81; PULSE 63; RESP 17; TEMP 36.6; O2SAT 99; BMI 27.5
[2023-12-18 02:52] LABS: Basophils Percent Auto 0.6 % (0-2); Eosinophils Absolute Auto 0.1 X10*3/uL (0.0-0.4); Eosinophils Percent Auto 0.9 % (0-4); Hematocrit 36.9 % (37.0-47.0); Hemoglobin 12.6 g/dl (12.0-16.0); Imm Gran Abs Auto 0.02 X10*3/uL (0.00-0.03); Imm Gran Pct Auto 0.3 % (0.0-0.4); Lymphocytes Absolute Auto 2.5 X10*3/uL (1.2-4.9); Lymphocytes Percent Auto 36.2 % (20-40); MANUAL DIFF FLAG NO; Mean Corpuscular HGB Conc 34.1 g/dl (31.0-35.0); Mean Corpuscular Hemoglobin 28.5 pg (27.0-33.0); Mean Corpuscular Volume 83.5 fL (80.0-98.0); Mean Platelet Volume 10.2 fL (9.4-12.3); Monocytes Absolute Auto 0.6 X10*3/uL (0.1-1.2); Monocytes Percent Auto 8.2 % (2-11); Neutrophils Absolute Auto 3.7 x10*3/uL (2.0-8.3); Neutrophils Percent Auto 53.8 % (45-73); Platelet Count 285 X10*3/uL (160-400); Red Blood Count 4.42 X10*6/uL (4.20-5.50); Red Cell Distribution Width 13.8 % (11.0-16.0); White Blood Count 6.8 X10*3/uL (4.8-10.8)
[2023-12-18 02:57] VITALS: BP 153/75; PULSE 58; RESP 14; TEMP 36.8; O2SAT 99
[2023-12-18 03:06] LABS: Alanine Aminotransferase 12 U/L (0-31); Albumin Level 4.4 g/dL (3.5-5.0); Alkaline Phosphatase 57 U/L (39-117); Anion Gap 15 (12-20); Aspartate Amino Transferase 18 U/L (5-31); Bilirubin Direct 0.1 mg/dL (0.0-0.5); Bilirubin Total 0.4 mg/dL (0.0-1.0); Blood Urea Nitrogen 18 mg/dL (9-16); Calcium 9.6 mg/dL (8.4-10.2); Carbon Dioxide 24 mmol/L (22-29); Chloride 102 mmol/L (96-108); Creatinine Clr Calc Pharmacy 71.3; Estimated Glomerular Filt Rate > 60; Glucose Random 126 mg/dL (60-115); Magnesium 2.3 mg/dL (1.6-2.6); Potassium 3.7 mmol/L (3.3-5.1); Sodium 137 mmol/L (135-145); Total Protein 7.7 g/dL (6.5-8.0)
[2023-12-18 03:10] LABS: Appearance Urine Clear; Color Urine Yellow; Glucose Urine UA Negative (Negative); Leukocyte Esterase Urine Trace (Negative); Nitrite Urine Negative (Negative); UMIC TRIGGER UACC YES; Urine Blood Negative (Negative); Urine Ketones 15 mg/dL (Negative); Urine Protein Negative (Neg-Trace)
[2023-12-18 03:15] LABS: Bacteria Urine None Seen (None Seen); Hyaline Casts Urine 0-2 /LPF (0-2); RBC Urine 0-2 /HPF (0-2); Squamous Epithelial Cell Urine 0-2 /HPF (0-2); WBC Urine 0-5 /HPF (0-5)
[2023-12-18 05:27] VITALS: BP 128/65; PULSE 50; RESP 12; TEMP 36.8; O2SAT 97
--- NOTE | 2023-12-18 05:35 | ED.DIZZY ---
HPI - Dizziness General Chief Complaint: Dizziness Stated Complaint: head spins, n/v Time Seen by Provider: 12/18/23 05:07 Source: patient Mode of arrival: ambulatory Limitations: no limitations History of Present Illness ED Provider: Dr. Carrie Santamaria HPI Narrative: Patient comes to the emergency room complaining of dizziness. Patient states intermittently for the 7 hours, she has been having room spinning episodes which make her very nauseous. Patient states it started on December 16 around 22:00. Patient states she was playing with her granddaughter. Patient states that when she closes her eyes she starts feeling better. But once she opens her eyes, the room starts spinning again. Patient denies any falls. Patient denies any previous episodes of vertigo. However, patient states that she has had COVID x3, the last time she had COVID 3 months ago, patient developed chronic tinnitus. Related Data Home Medications ?Medication ?Instructions ?Recorded ?Confirmed triprolidine-pseudoephedrine 2.5 1 tab PO Q4-6H PRN 08/20/22 10/05/22 mg-60 mg tablet Previous Rx's ?Medication ?Instructions ?Recorded cholecalciferol (vitamin D3) 25 25 mcg PO DAILY #90 tabs 07/01/21 mcg (1,000 unit) tablet polyethylene glycol 3350 17 17 g PO DAILY PRN constipation 03/18/22 gram/dose oral powder (Miralax) #119 grams cetirizine 10 mg tablet 10 mg PO DAILY PRN allergy 08/20/22 symptoms 30 days #30 tabs doxycycline monohydrate 100 mg 100 mg PO BID 7 days #14 caps 08/20/22 capsule azithromycin 250 mg tablet See Rx Instructions PO .COMPLEX #6 04/07/23 tabs prednisone 20 mg tablet 40 mg (2 x 20 mg) PO DAILY #10 tabs 04/07/23 Allergies Allergy/AdvReac Type Severity Reaction Status Date / Time fluticasone [Flonase] Allergy Unknown Unknown Verified 12/18/23 02:24 From FLONASE Allergy Severe HIVES Uncoded 12/18/23 02:24 Flonase Allergy Unknown Hives/Swell Uncoded 12/18/23 02:24 ing Review of Systems Review of Systems: Constitutional : No Weight loss, No Fever, No Chills, No Night Sweats, No Fatigue, No Malaise ENT/Mouth : No Hearing loss, No Ear Pain, No Nasal Congestion, No Sinus Pain, No Hoarseness, No sore throat, No Rhinorrhea, No Swallowing Difficulty Eyes: No Eye Pain, No Swelling, No Redness, No Foreign Body, No Discharge, No Vision Changes Cardiovascular : No Chest Pain, No SOB, No Dyspnea on Exertion, No Orthopnea, No Edema, No Palpitations Respiratory : No Cough, No Sputum, No Wheezing, No Smoke Exposure, No Dyspnea Gastrointestinal : No Nausea, No Vomiting, No Diarrhea, No Constipation, No abdominal Pain, No Hematochezia, No Melena Genitourinary : no irregular bleeding, No Dysuria, No Urinary Frequency, No Hematuria, No Urinary Incontinence, No Urgency, No Flank Pain, No Urinary Flow Changes, No Hesitancy Musculoskeletal : No joint pain, No Myalgias, No Joint Swelling Skin : No Skin Lesions, No rash Neuro : No Weakness, No Numbness, No Paresthesias, No Loss of Consciousness, denies headache, complaining of room spinning that improves with closing eyes and gets worse by moving the head Psych : No Anxiety/Panic, No Depression, No SI/HI/AH/VH, No Social Issues, Heme/Lymph: No Bruising, No Bleeding,No Lymphadenopathy Endocrine : No Polyuria, No Polydipsia, No Temperature Intolerance PMFSH Past Medical History Medical History AFLP (acute fatty liver of ) Mammogram declined Toe fracture, left Melasma Pituitary microadenoma Peripheral neuropathy Hypercholesterolemia Vitamin D deficiency Overweight (BMI 25.0-29.9) Hot flashes Surgical History Hx of tubal ligation [place] teeth extracted Family History Family History Father CAD (coronary artery disease) Mother No problems noted. Social History Social History Housing: Apartment Alcohol intake: never Patient Tobacco Use Status: Never used Tobacco Smoked in Last 30 Days: No e-Cigarette/Vaping Use: Never Used Second Hand Smoke Exposure: No Use of substances other than those prescribed or required for medical reasons: No Advance Directives: No Advance Directives Information Provided: No Do you have a plan to hurt others: No Plan Patient : No Current occupational status: employed Physical Exam Vital Signs: Vital Signs: Last Vital Signs Temp 97.7 F 12/18/23 06:26 Pulse 72 12/18/23 06:26 Resp 12 12/18/23 06:26 BP 129/70 12/18/23 06:26 Pulse Ox 97 12/18/23 06:26 O2 Del Method Room Air 12/18/23 06:26 BMI result Body Mass Index 27.5 Const: Other: Appearance: Alert. Oriented X3. No acute distress. Eyes: Pupils equal, round and reactive to light. At this time, no nystagmus, no dizziness at this time. ENT: Pharynx normal. Neck: Normal inspection. Neck supple. No lymph nodes noted. No crepitus CVS: Normal heart rate and rhythm. Pulses normal. Normal S1 and S2 Respiratory: No respiratory distress. Breath sounds normal. No Wheezing. No rales Abdomen: Soft and nontender. No rigidity. No distention. Skin: Skin warm and dry. Normal skin color. Normal skin turgor. Extremities: No lower extremity edema. No Lacerations. No Rash Neuro: Oriented X 3. No motor deficit. No sensory deficit. Moving all extremities. No slurred speech. CN 2 through 12 grossly intact, patient able to sit up, patient has good truncal stability Psych: calm, cooperative, normal affect Course Course Course Narrative: -I discussed with the patient that likely she has vertigo. However, we will go ahead and order the CTA to rule out posterior CVA - Medications Administered Discontinued Medications Generic Name Dose Route Start Last Admin Trade Name Tessie PRN Reason Stop Dose Admin Diazepam 2 mg 12/18/23 05:14 12/18/23 06:15 Diazepam 2 Mg Tablet PO 12/18/23 05:15 Not Given ONCE ONE Diphenhydramine HCl 50 mg 12/18/23 05:53 12/18/23 05:58 Diphenhydramine Hcl 50 Mg/Ml Vial IVPUSH 12/18/23 05:54 50 mg ONCE ONE Administration Famotidine 20 mg 12/18/23 05:53 12/18/23 05:58 Famotidine/Pf 20 Mg/2 Ml Vial IVPUSH 12/18/23 05:54 20 mg ONCE ONE Administration Sodium Chloride 1,000 mls @ 999 mls/hr 12/18/23 05:14 12/18/23 05:58 Ns IVCONT 12/18/23 06:14 999 mls/hr .Q1H1M ONE Administration Sodium Chloride 1,000 mls @ 999 mls/hr 12/18/23 05:53 12/18/23 06:06 Ns IVCONT 12/18/23 06:53 999 mls/hr .Q1H1M ONE Administration Iohexol 65 ml 12/18/23 05:57 12/18/23 05:58 Iohexol 350 Mg/Ml 100 Ml Infus..Btl IV 12/18/23 05:58 65 ml ONCE ONE Administration Meclizine HCl 50 mg 12/18/23 05:14 12/18/23 06:16 Meclizine Hcl 25 Mg Tablet PO 12/18/23 05:15 Not Given ONCE ONE Methylprednisolone Sodium Succinate 125 mg 12/18/23 05:53 12/18/23 05:58 Methylprednisolone Sod Succ 125 Mg/2 Ml Vial IVPUSH 12/18/23 05:54 125 mg ONCE ONE Administration Medical Decision Making Medical Decision Making MDM Narrative: My interpretation of labs, normal hematology, normal chemistry. Urinalysis shows trace leukocyte esterase, no UTI symptoms. -patient received a dose of meclizine and p.o. diazepam. -my interpretation of CTA, no obvious intracranial bleed. Radiology report pending. -the CTA was done, when the patient returned to the room, patient was complaining of itching and hives, no difficulty breathing. Patient was given IV Solu-Medrol, Benadryl, Pepcid and fluids -I was informed by the patient's nurse that the hives are improving. However, patient did not want to take meclizine or diazepam. Patient states she is afraid of getting addicted to diazepam and patient states also that she has no longer that dizzy and would like to not take the medication at this time. If patient starts getting symptoms again, she will request meclizine. -CTA results pending -sign-out given to my colleague Dr. Martell Differential Diagnosis Differential Diagnoses: The differential diagnosis associated with the presentation includes (BPPV, Meniere's disease, posterior CVA) Admission/Observation Consideration of admission/observation: Escalation of care including admission/observation considered (Given patient's severity of symptoms, admission was considered) Lab Data MDM Lab Attestation statement: I reviewed the patient's lab results. 12/18/23 02:47 12/18/23 02:47 Labs: Lab Results 12/18/23 12/18/23 Range/Units 02:47 03:04 WBC 6.8 (4.8-10.8) X10*3/uL RBC 4.42 (4.20-5.50) X10*6/uL Hgb 12.6 (12.0-16.0) g/dl Hct 36.9 L (37.0-47.0) % MCV 83.5 (80.0-98.0) fL MCH 28.5 (27.0-33.0) pg MCHC 34.1 (31.0-35.0) g/dl RDW 13.8 (11.0-16.0) % Plt Count 285 (160-400) X10*3/uL MPV 10.2 (9.4-12.3) fL Immature Gran % (Auto) 0.3 (0.0-0.4) % Neut % (Auto) 53.8 (45-73) % Lymph % (Auto) 36.2 (20-40) % [place] % (Auto) 8.2 (2-11) % Eos % (Auto) 0.9 (0-4) % Baso % (Auto) 0.6 (0-2) % Lymph # (Auto) 2.5 (1.2-4.9) X10*3/uL [place] # (Auto) 0.6 (0.1-1.2) X10*3/uL Eos # (Auto) 0.1 (0.0-0.4) X10*3/uL Baso # (Auto) 0.0 (0.0-0.2) X10*3/uL Abs Immat Gran (auto) 0.02 (0.00-0.03) X10*3/uL Absolute Neuts (auto) 3.7 (2.0-8.3) x10*3/uL Absolute Nucleated RBC 0.000 (0.0-0.012) X10*3/uL Nucleated RBC % (auto) 0.0 (0.0-0.2) /100WBC Sodium 137 (135-145) mmol/L Potassium 3.7 (3.3-5.1) mmol/L Chloride 102 (96-108) mmol/L Carbon Dioxide 24 (22-29) mmol/L Anion Gap 15 (12-20) BUN 18 H (9-16) mg/dL Creatinine 0.86 (0.5-1.4) mg/dL Estim Creat Clear Calc 71.3 Estimated GFR > 60 Random Glucose 126 H (60-115) mg/dL Calcium 9.6 (8.4-10.2) mg/dL Magnesium 2.3 (1.6-2.6) mg/dL Total Bilirubin 0.4 (0.0-1.0) mg/dL Direct Bilirubin 0.1 (0.0-0.5) mg/dL AST 18 (5-31) U/L ALT 12 (0-31) U/L Alkaline Phosphatase 57 (39-117) U/L Total Protein 7.7 (6.5-8.0) g/dL Albumin 4.4 (3.5-5.0) g/dL Urine Color Yellow Urine Appearance Clear Urine pH 5.0 (5.0-9.0) Ur Specific [place] 1.010 (1.005-1.025) Urine Protein Negative (Neg-Trace) mg/dL Urine Glucose (UA) Negative (Negative) mg/dL Urine Ketones 15 (Negative) mg/dL Urine Blood Negative (Negative) Urine Nitrite Negative (Negative) Ur Leukocyte Esterase Trace H (Negative) Urine RBC 0-2 (0-2) /HPF Urine WBC 0-5 (0-5) /HPF Ur Squamous Epith Cells 0-2 (0-2) /HPF Urine Bacteria None Seen (None Seen) Hyaline Casts 0-2 (0-2) /LPF Independent Interpretation I performed an independent interpretation of an: CT Scan Critical Care Time Critical Care Time Critical Care Time: Yes Total Critical Care Time: 45 Attestation: I have personally provided critical care time. Time includes review of lab data, radiology results, discussion with consultants, and monitoring for potential decompensation. Intervention performed as documented. Discharge Plan Discharge Clinical Impression: Dizziness, Vertigo Patient Disposition: Still a Patient Prescriptions: No Action cholecalciferol (vitamin D3) 25 mcg (1,000 unit) tablet 25 mcg PO DAILY Qty: 90 0RF polyethylene glycol 3350 [Miralax] 17 gram/dose powder 17 g PO DAILY PRN (Reason: constipation) Qty: 119 0RF azithromycin 250 mg tablet See Rx Instructions .ROUTE .COMPLEX Qty: 6 0RF Rx Instructions: For 250 mg dose pack: take 500 mg today (day 1), then 250 mg for 4 days (days 2-5) prednisone 20 mg tablet 40 mg PO DAILY Qty: 10 0RF triprolidine-pseudoephedrine 2.5-60 mg tablet 1 tab PO Q4-6H PRN Rx Instructions: DNExceed 4 doses/24h doxycycline monohydrate 100 mg capsule 100 mg PO BID 7 Days Qty: 14 0RF cetirizine 10 mg tablet 10 mg PO DAILY PRN (Reason: allergy symptoms) 30 Days Qty: 30 0RF Print Language: Uzbek
[2023-12-18] MEDS: methylPREDNISolone Sod Succ 125 MG/2 ML VIAL IVPUSH (05:58)
[2023-12-18] MEDS: Famotidine/PF 20 MG/2 ML VIAL IVPUSH (05:58)
[2023-12-18] MEDS: 0.9 % Sodium Chloride 1,000 ML 999 ML IVCONT ×2 (05:58→06:06)
[2023-12-18] MEDS: diphenhydrAMINE HCL 50 MG/ML VIAL IVPUSH (05:58)
[2023-12-18] MEDS: iohexoL 350 MG/ML 100 ML INFUS..BTL 65 ML IV (05:58)
--- NOTE | 2023-12-18 06:24 | PC.NURSE ---
Pt went to CT and after receiving IV contrast developed hives all over body, skin redness, and itchiness. MD aware and orders for fluids, benadryl, solumedrol and pepcid, administered. Pt refused meclezine and valium d/t fear of getting addicted and not wanting to take too many medications after just receiving other meds. Pt also stated I am no longer really dizzy . MD made aware. Pt in bed at this time call baker within reach denies any other concerns at this time.
[2023-12-18 06:26] VITALS: BP 129/70; PULSE 72; RESP 12; TEMP 36.5; O2SAT 97
--- NOTE | 2023-12-18 08:10 | PC.NURSE ---
Care assumed of Pt at change of shift. Pt is observed resting comfortably with eyes closed on bed. NAD noted. Will re-assess Pt once awake.
[2023-12-18 09:13] VITALS: BP 108/74; PULSE 60; RESP 18; TEMP 36.6; O2SAT 95
== END 2023-12-18 09:51 | disposition home or self-care (01) ==
PROVIDERS: Emergency Provider Emergency Medicine
DX: R42 Dizziness and giddiness (principal); H93.13 Tinnitus, bilateral; R11.0 Nausea; R00.1 Bradycardia, unspecified; Z79.899 Other long term (current) drug therapy
CPT/HCPCS: 36415; 70496; 70498; 80048; 80076; 81001; 83735; 85025; 93005; 96360; 96361; 96374; 96376; 99285; J1200; J2919; Q9967

== ENCOUNTER → 2023-12-18 02:37 | Outpatient (BNV) | payer OTHER, SELFPAY | PROVIDERS: Emergency Provider Emergency Medicine; Visit Provider Internal Medicine Cardiovascular Disease | DX: R00.1 Bradycardia, unspecified (principal) | CPT/HCPCS: 93010 ==

== ENCOUNTER 2023-12-20 10:19 | Outpatient (AMB) | payer OTHER, SELFPAY ==
[2023-12-20 10:52] VITALS: BP 132/74; PULSE 78; TEMP 36.7; O2SAT 97
--- NOTE | 2023-12-20 10:52 | MHC.OFFWIV ---
Intake Vital Signs 12/20/23 10:52 Height 5 ft 5 in BP 132/74 Blood Pressure Location Rt brachial Position Sitting Pulse 78 Pulse Source Pulse Oximeter Temp 98.0 F Temp Source Temporal Artery Scan Pulse Oximetry (%) 97 Intake Visit Reasons: EP Eye swelling ~both/pain RT Intake Note: pt is here for eye swelling, right eye has pain Patient Tobacco Use Status: Never used Tobacco Allergies fluticasone [Flonase] Allergy (Unknown, Verified 12/20/23 10:53) Unknown From FLONASE Allergy (Severe, Uncoded 12/18/23 02:24) HIVES IV dye Allergy (Intermediate, Uncoded 12/18/23 08:56) Hives Flonase Allergy (Unknown, Uncoded 12/18/23 02:24) Hives/Swelling Do you need a note to return to daycare/school/sports/work: Yes HPI HPI Comments History of Present Illness Details This is a 58-year-old female with no stated past medical history presenting for evaluation of itchy eyes, swelling under her eyes and right frontal sinus pain that started yesterday. Of note, patient was seen in the emergency department for evaluation of vertigo on December 17 and had CTA imaging of her brain and neck with no acute findings. Patient denies having a headache, ear pain, visual changes, sore throat, cough or shortness of breath. Patient has not taken any medication for treatment of her symptoms. [facility] Medical History AFLP (acute fatty liver of ) Mammogram declined Toe fracture, left Melasma Pituitary microadenoma Peripheral neuropathy Hypercholesterolemia Vitamin D deficiency Overweight (BMI 25.0-29.9) Hot flashes Surgical History Hx of tubal ligation [place] teeth extracted Family History Father CAD (coronary artery disease) Mother No problems noted. Social History Housing: Apartment Alcohol intake: never Patient Tobacco Use Status: Never used Tobacco e-Cigarette/Vaping Use: Never Used Second Hand Smoke Exposure: No Current occupational status: employed Review of Systems Const All systems reviewed & are unremarkable except as noted in HPI and below Denies chills, Denies fever(s) and Denies malaise Eyes Reports no additional complaints, Reports itchy eyes and Reports other (bilateral eye swelling) ENT Reports no additional complaints, Denies vertigo, Denies dizziness, Denies nasal congestion and Reports tinnitus (bilateral) Card Reports no additional complaints Resp Reports no additional complaints GI Reports no additional complaints Reports no additional complaints Musc Reports no additional complaints Neuro Reports no additional complaints, Denies vertigo and Denies dizziness Psych Reports no additional complaints Aller/Immun Reports itchy eyes Physical Exam Vital Signs: Last Vital Signs Temp 98.0 F 12/20/23 10:52 Pulse 78 12/20/23 10:52 BP 132/74 12/20/23 10:52 Pulse Ox 97 12/20/23 10:52 Const General: cooperative, healthy appearing, comfortable, no acute distress, well developed, alert, awake and Physically active Nutritional Appearance: average body habitus Orientation/consciousness: patient oriented x3 Limitations: no limitations HEENT Head: Yes normal to inspection Ears: hearing grossly normal bilaterally, external ears normal, TM's abnormal bilaterally (TMs bulging bilaterally without erythema, minimal fluid level right TM) and EAC's normal General nose exam: Normal external nose present Face and sinus: Yes normal facial exam, Yes sinuses nontender and No Facial tenderness on exam of face and sinuses Mouth: Normal oral and palatal mucosa present Throat: Yes posterior oropharynx normal and No postnasal drainage Eyes General: appearance normal, both eyes and all related structures Visual Benites: normal visual benites by confrontation Alignment and Position: alignment normal Periorbital: periorbital findings normal Eyelids: Yes eyelids normal Conjunctivae: conjunctivae normal Sclerae: sclerae normal Corneas: corneas normal Pupils: Equal, round and reactive pupils present EOM: EOMs intact bilaterally Direct Ophthalmoscopy: no photophobia Neck Lymphatic: no lymphadenopathy noted Neuro General: patient oriented x3 Cranial nerves: Yes Equal, round and reactive pupils present Psych Appearance: grossly normal Mental Status: mental status grossly normal Insight: Good insight present (Psych) Judgement: Good judgement present (Psych) Assessment & Plan Assessment & Plan (1) Allergic rhinitis: Comment: There is no periorbital edema, conjunctivitis, cellulitis or other ocular findings noted on examination however the patient does report itchy eyes and sinus tenderness. Code(s): J30.9 - Allergic rhinitis, unspecified Qualifiers: Allergic rhinitis trigger: pollen Allergic rhinitis seasonality: seasonal Qualified Code(s): J30.1 - Allergic rhinitis due to pollen Plan: Loratadine once daily, follow up with PCP 7-10 days. Medications: New loratadine 10 mg PO DAILY 30 tabs 0RF Coding Level of Care Code Est Pt Level 3 (92560) Diagnoses Seasonal allergic rhinitis due to pollen J30.1 Allergic rhinitis trigger: pollen Allergic rhinitis seasonality: seasonal Time Spent (min) 20
== END 2023-12-20 11:34 | disposition home or self-care (01) ==
PROVIDERS: Visit Provider Physician Assistant
DX: J30.1 Allergic rhinitis due to pollen (principal)
CPT/HCPCS: 99213

== ENCOUNTER 2024-01-03 14:49 | Outpatient (AMB) | payer OTHER, SELFPAY ==
[2024-01-03 14:54] VITALS: BP 110/74; PULSE 64; O2SAT 98; BMI 26.5
--- NOTE | 2024-01-03 14:54 | MHC.PC.OV ---
Vital Signs 01/03/24 14:54 Height 5 ft 5 in Weight 159 lb 0.3 oz BMI 26.5 BP 110/74 Blood Pressure Location Lt brachial Position Sitting Pulse 64 Pulse Source Pulse Oximeter Pulse Oximetry (%) 98 Oxygen Delivery Method Room Air Intake Visit Reasons: [facility] Procurement Representative Required: No Allergies fluticasone [Flonase] Allergy (Unknown, Verified 01/03/24 15:18) Unknown From FLONASE Allergy (Severe, Uncoded 01/03/24 15:18) HIVES IV dye Allergy (Intermediate, Uncoded 01/03/24 15:18) Hives Flonase Allergy (Unknown, Uncoded 01/03/24 15:18) Hives/Swelling Medication List - Last Reconciled 01/03/24 by Jailene Valera PA-C cholecalciferol (vitamin D3) 25 mcg PO DAILY meclizine 25 mg PO TID PRN Tobacco use date assessed: 01/03/24 Dental Screening Dental Screen Date: 01/03/24 Did you have a dental visit in the last 12 months?: Yes Did you have a dental problem in the last 6 months where you did not have access to dental care?: No Was dental information given to patient?: Patient has dentist HPI [facility] HPI Details 58 year old female with past history of hypercholesterolemia, impaired glucose tolerance, generalized anxiety disorder last seen by [facility] 06/2021 coming in for follow up. In review of the notes, patient has been to walk in clinic several times for acute problems. Patient was seen in [facility] ER for vertigo 12/2023 was given Meclizine and steroids. Today she tells us she had COVID a few months ago and since then has been having ringing in her ears and episodes of vertigo. Her most recent episode she was treated in the ER due to the severity which has since resolved. She is not followed by OBGYN and has not been having routine pap smears. She has declined mammo in the past and has declined today as well. Last colonoscopy was 2015 with repeat in 10 years. [facility] Medical History AFLP (acute fatty liver of ) Mammogram declined Toe fracture, left Melasma Pituitary microadenoma Peripheral neuropathy Hypercholesterolemia Vitamin D deficiency Overweight (BMI 25.0-29.9) Hot flashes Surgical History Hx of tubal ligation [place] teeth extracted Family History Father CAD (coronary artery disease) Mother No problems noted. Social History Housing: Apartment Alcohol intake: never Patient Tobacco Use Status: Never used Tobacco e-Cigarette/Vaping Use: Never Used Second Hand Smoke Exposure: No Current occupational status: employed Cognitive needs: No Hearing needs: No Vision needs: No Questionnaire PHQ-9 Over the last 2 weeks, how often have you been bothered by any of the following problems? 1. Little interest or pleasure in doing things: not at all 2. Feeling down, depressed, or hopeless: not at all 3. Trouble falling or staying asleep, or sleeping too much: not at all 4. Feeling tired or having little energy: not at all 5. Poor appetite or overeating: not at all 6. Feeling bad about yourself - or that you are a failure or have let yourself or your family down: not at all 7. Trouble concentrating on things, such as reading the newspaper or watching television: not at all 8. Moving or speaking so slowly that other people could have noticed. Or the opposite - being so fidgety or restless that you have been moving around a lot more than usual: not at all 9. Thoughts that you would be better off or of hurting yourself in some way: not at all Total score: 0 Depression Screening Interpretation: Negative Depression Screening Done: Yes Source: Developed by Drs. Owen Malhotra, Tiff Collado, Thien Ivey and colleagues, with an educational mellisa from [employer]. Thrive Questionnaire Date Thrive assessed: 06/26/21 AUDIT C Alcohol Use Questionnaire (AUDIT-C) 1. How often do you have a drink containing alcohol?: Never 2. How many drinks containing alcohol do you have on a typical day when you are drinking?: 1 or 2 (0) 3. How often do you have six or more drinks on one occasion?: Never Total Score: 0 SANTIAGO-7 AMB Questionnaire SANTIAGO-7 Date SANTIAGO - 7 assessed: 01/03/24 Feeling nervous, anxious, or on edge: 0 = Not at all Not being able to stop or control worryin = Not at all Worrying too much about different things: 0 = Not at all Trouble relaxin = Not at all Being so restless that it is hard to sit still: 0 = Not at all Becoming easily annoyed or irritable: 0 = Not at all Feeling afraid as if something awful might happen: 0 = Not at all Total SANTIAGO-7 score (0-4 normal; 5-9 mild; 10-14 moderate; 15-21 severe): 0 Source: Developed by Drs. Owen Malhotra, Tiff Collado, Thien Ivey and colleagues, with an educational mellisa from [employer]. SANTIAGO-7 Assessment Billing SANTIAGO-7 Assessment Tool: SANTIAGO-7 Assessment 55834 Review of Systems Const Denies body aches, Denies chills, Denies fatigue, Denies fever(s), Denies headache(s) and Denies poor appetite Eyes Reports no additional complaints ENT Denies dysphagia, Reports dizziness (occasional vertigo ), Denies headache(s), Denies odynophagia and Reports tinnitus Card Denies chest pain, Denies syncope, Denies edema, Denies irregular heart rhythm, Denies lightheadedness and Denies dyspnea Resp Denies cough and Denies dyspnea GI Denies abdominal pain, Denies constipation, Denies dysphagia, Denies diarrhea, Denies nausea, Denies odynophagia and Denies vomiting Reports no additional complaints Musc Reports no additional complaints and Denies abnormal gait Skin/Breast Reports system reviewed and no additional complaints, except as documented Neuro Denies abnormal gait, Reports dizziness (occasional vertigo ), Denies syncope and Denies headache(s) Psych Reports no additional complaints Endo Denies fatigue Physical exam (Primary Care) Vital Signs: Last Vital Signs Pulse 64 01/03/24 14:54 BP 110/74 01/03/24 14:54 Pulse Ox 98 01/03/24 14:54 Oxygen Delivery Method Room Air 01/03/24 14:54 BMI result Body Mass Index 26.5 Tobacco/Smoking Status: Tobacco use Status Tobacco use date assessed 01/03/24 01/03/24 14:56 Patient Tobacco Use Status Never used Tobacco 01/03/24 14:56 e-Cigarette/Vaping Use Never Used 01/03/24 14:56 PHQ-9: PHQ-9 Score PHQ-9: Total score 0 01/03/24 15:00 Depression Screening Interpretation: Negative Thrive Assessment: Date of Thrive Assessment Date Thrive assessed 06/26/21 01/03/24 14:56 Const General: cooperative, healthy appearing, comfortable and no acute distress Orientation/consciousness: patient oriented x3 HENMT Head: Yes normocephalic Ears: hearing grossly normal bilaterally General nose exam: Normal external nose present Face and sinus: Yes normal facial exam and Yes sinuses nontender Mouth: Normal oral and palatal mucosa present and tongue normal Throat: Yes posterior oropharynx normal Eyes General: appearance normal, both eyes and all related structures Conjunctivae: conjunctivae normal Pupils: Equal, round and reactive pupils present EOM: EOMs intact bilaterally and No Nystagmus present Neck Neck: Yes full ROM and Yes no lymphadenopathy Chest Chest palpation & inspection: normal inspection of the chest Resp Effort & Inspection: normal respiratory effort Auscultation: clear to auscultation bilaterally, no crackles, no rales, no rhonchi and no wheezes Cardio Rate: regular rate Rhythm: regular rhythm Peripheral pulses: radial pulses present and dorsalis pedis present GI Inspection: Yes normal to inspection and No Abdominal wall edema Palpation (GI): Soft to palpation, not firm and nontender Auscultation: normal bowel sounds Rectal Exam - Female: deferred General: Yes no CVA tenderness Back/Spine/Pelvis Back: no CVA tenderness Skin General skin exam: no rashes or lesions noted Neuro General: patient oriented x3 Cranial nerves: Yes Equal, round and reactive pupils present, Yes Midline tongue present, Yes Ability to bilaterally elevate shoulders present and No Nystagmus present Gait exam (Neuro): Normal gait present Extrem General: Yes normal to inspection, Yes full ROM and No edema Psych Speech and movement: Normal speech and movement present Affect: normal affect Attitude: cooperative Insight: Good insight present (Psych) Judgement: Good judgement present (Psych) Assessment and Plan Assessment & Plan (1) Tinnitus: Code(s): H93.19 - Tinnitus, unspecified ear Qualifiers: Laterality: bilateral Qualified Code(s): H93.13 - Tinnitus, bilateral Plan: Patient has been having intermittent ringing in the ears ongoing since COVID infection. She believed it to initially be related to sinusitis but after completion of treatment she still has the ringing. Counseled patient on ways to mask the ringing and also on triggers. Referral to ENT placed at patient request. (2) Impaired glucose tolerance: Code(s): R73.02 - Impaired glucose tolerance (oral) Plan: Last random blood sugar elevated at 126. Decrease the amount of carbohydrates such as pasta, bread, rice, and potatoes and limit the amount of sweets. Although fruits are generally healthy they should be eaten in moderation as they are still high in sugar. A1c ordered. (3) Generalized anxiety disorder: Code(s): F41.1 - Generalized anxiety disorder Plan: Patient is not currently on medical management and has declined counseling. (4) Vitamin D deficiency: Code(s): E55.9 - Vitamin D deficiency, unspecified Plan: Continue on vitamin-D supplementation and repeat labs ordered today. (5) Hypercholesterolemia: Code(s): E78.00 - Pure hypercholesterolemia, unspecified Plan: Not currently on medication, repeat labs ordered today. Avoid foods that are high in cholesterol such as red meat, fried foods, eggs and baked goods. Triglyceride goal of less than 150 and LDL goal of less than 130. (6) Annual physical exam: Code(s): Z00.00 - Encounter for general adult medical examination without abnormal findings Plan: Patient is up-to-date on colonoscopy. She has declined mammogram and Pap smears despite my recommendation. Repeat blood work ordered today. Follow up in 1 year or sooner if new problems arise. Plan This note was constructed using voice recognition software. While every effort has been made to ensure accuracy and fire pilot, still areas may have been included sometimes these areas may affect the content or meeting of the given symptoms. Total time spent caring for the patient today was 45 minutes. This includes time spent before the visit reviewing the chart, time spent during the visit, and time spent after the visit and documentation. Orders: Orders Hemoglobin A1c Today Z00.00 - Encounter for general adult medical examination without abnormal findings Vitamin B12 and Folate Today Z00.00 - Encounter for general adult medical examination without abnormal findings Thyroid Stimulating Hormone Today Z00.00 - Encounter for general adult medical examination without abnormal findings Vitamin D 25-OH (D2 and D3) Today Z00.00 - Encounter for general adult medical examination without abnormal findings Lipid Panel Today Z00.00 - Encounter for general adult medical examination without abnormal findings Free T4 (Free Thyroxine) Today Z00.00 - Encounter for general adult medical examination without abnormal findings Referrals Ear/Nose/Throat Referral H93.19 - Tinnitus, unspecified ear Medications: Refilled cholecalciferol (vitamin D3) 25 mcg PO DAILY 90 tabs 0RF R79.89 - Other specified abnormal findings of blood chemistry Coding Level of Care Code Est Pt Prev Care 40-64y(28907) Diagnoses Tinnitus of both ears H93.13 Laterality: bilateral Impaired glucose tolerance R73.02 Generalized anxiety disorder F41.1 Vitamin D deficiency E55.9 Hypercholesterolemia E78.00 Annual physical exam Z00.00 Additional Codes SANTIAGO-7 Assessment Billing - SANTIAGO-7 Assessment Tool: SANTIAGO-7 Assessment 26089 ([id number])
== END 2024-01-03 15:39 | disposition home or self-care (01) ==
DX: Z00.00 Encounter for general adult medical examination without abnormal findings (principal); H93.13 Tinnitus, bilateral; R73.02 Impaired glucose tolerance (oral); F41.1 Generalized anxiety disorder; E55.9 Vitamin D deficiency, unspecified; E78.00 Pure hypercholesterolemia, unspecified
CPT/HCPCS: 99396

== ENCOUNTER 2024-01-23 11:11 | Outpatient (REF) | payer OTHER, SELFPAY ==
[2024-01-23 12:16] LABS: Estimated Average Glucose 120 mg/dL; Hemoglobin A1c % 5.8 % (<6.0)
[2024-01-23 12:41] LABS: Cholesterol 340 mg/dL (<200); HDL Cholesterol 43 mg/dL (>40); LDL Cholesterol Calculated 227 mg/dL (<100); Triglycerides 353 mg/dL (<150)
[2024-01-23 12:48] LABS: Free T4 (Free Thyroxine) 0.83 ng/dL (0.71-1.85); Thyroid Stimulating Hormone 2.57 uIU/mL (0.32-4.0)
[2024-01-23 12:57] LABS: Folate 9.7 ng/mL (> or = 4.0); Vitamin B12 351 pg/mL (200-900)
[2024-01-29 15:08] LABS: Vitamin D 25-OH, D2 <4 ng/mL; Vitamin D 25-OH, D3 24 ng/mL; Vitamin D 25-OH, Total 24 ng/mL (30-100)
== END 2024-01-23 11:12 | disposition home or self-care (01) ==
LOC: HO.LAB 11:11
DX: Z00.00 Encounter for general adult medical examination without abnormal findings (principal)
CPT/HCPCS: 36415; 80061; 82306; 82607; 82746; 83036; 84439; 84443

== ENCOUNTER 2024-02-23 13:18 | Emergency (ER) | payer OTHER, SELFPAY ==
[2024-02-23 13:51] VITALS: BP 179/92; PULSE 100; RESP 18; TEMP 36.8; O2SAT 97; BMI 31.9
--- NOTE | 2024-02-23 13:53 | ED_ITS ---
HPI - Dizziness General Chief Complaint: Dizziness Stated Complaint: vertigo Time Seen by Provider: 02/23/24 21:30 Source: patient, RN notes reviewed and old records reviewed Mode of arrival: ambulatory Limitations: no limitations History of Present Illness ED Provider: Venessa VERMA Narrative: 58-year-old female presents for evaluation of dizziness. Patient reports a history of vertigo and states that this feels similar. She reports dizziness worse with positional changes since last night Patient does not have any medications at home to treat vertigo. She reports nausea with vomiting. She denies any headache No other complaints or concerns at this time The patient did have a CT angiography of the head and neck on 12/18/23 this did not show any high-grade stenosis Related Data Previous Rx's ?Medication ?Instructions ?Recorded meclizine 25 mg tablet 25 mg PO TID PRN dizziness #30 tabs 12/18/23 cholecalciferol (vitamin D3) 25 25 mcg PO DAILY #90 tabs 01/03/24 mcg (1,000 unit) tablet meclizine 25 mg tablet 25 mg PO TID PRN dizziness #20 tabs 02/23/24 Allergies Allergy/AdvReac Type Severity Reaction Status Date / Time fluticasone [Flonase] Allergy Unknown Unknown Verified 02/23/24 13:54 From FLONASE Allergy Severe HIVES Uncoded 01/03/24 15:18 IV dye Allergy Intermediate Hives Uncoded 01/03/24 15:18 Flonase Allergy Unknown Hives/Swell Uncoded 01/03/24 15:18 ing Review of Systems 2 Constitutional: Constitutional: Denies chills, Denies fever(s), Denies frequent falls and Denies headache(s) Eyes: Eyes: Denies blurry vision ENT: Reports vertigo, Reports dizziness and Denies headache(s) Cardiovascular: Cardiovascular: Denies chest pain and Denies dyspnea Respiratory: Respiratory: Denies cough and Denies dyspnea Gastrointestinal: Gastrointestinal: Denies abdominal pain, Reports nausea and Reports vomiting Musculoskeletal: Musculoskeletal: Denies back pain Integumentary/Breasts: Skin/Breast: Denies rash Neurologic: Reports vertigo, Reports dizziness, Denies frequent falls and Denies headache(s) Psychiatric: Psychiatric: Denies anxiety PMFSH Past Medical History Medical History AFLP (acute fatty liver of ) Mammogram declined Toe fracture, left Melasma Pituitary microadenoma Peripheral neuropathy Hypercholesterolemia Vitamin D deficiency Overweight (BMI 25.0-29.9) Hot flashes Surgical History Hx of tubal ligation [place] teeth extracted Family History Family History Father CAD (coronary artery disease) Mother No problems noted. Social History Social History Housing: Apartment Alcohol intake: never Patient Tobacco Use Status: Never used Tobacco e-Cigarette/Vaping Use: Never Used Second Hand Smoke Exposure: No Advance Directives: No Advance Directives Information Provided: Yes Do you have a plan to hurt others: No Plan Current occupational status: employed Cognitive needs: No Hearing needs: No Vision needs: No Physical Exam 2 Vital Signs: Vital Signs: Last Vital Signs Temp 97.8 F 02/23/24 20:49 Pulse 60 02/23/24 20:49 Resp 16 02/23/24 20:49 BP 121/68 02/23/24 20:49 Pulse Ox 97 02/23/24 20:49 O2 Del Method Room Air 02/23/24 20:49 BMI result Body Mass Index 31.9 Const: General: healthy appearing, comfortable, no acute distress, alert and awake Nutritional Appearance: well nourished Orientation/consciousness: p atient oriented x3 HEENT: Head: Yes normocephalic and Yes atraumatic Eyes: Eyelids: Yes eyelids normal Conjunctivae: conjunctivae normal S clerae: sclerae normal Corneas: corneas normal Pupils: Equal, round and reactive pupils present EOM: EOMs intact bilaterally Neck: Neck: Yes full ROM Resp: Effort & Inspection: normal respiratory effort, able to speak in complete sentences and not labored Cardio: Rate: regular rate Rhythm: regular rhythm Skin: General skin exam: elasticity normal Neuro: General: patient oriented x3 Cranial nerves: Yes CN's II-XII intact bilaterally, Yes Equal, round and reactive pupils present and Yes Bilaterally intact EOM present Cognition (Neuro): normal cognition Course Course Course Narrative: This is a Rapid Medical Examination (RME) performed by Gina Maxwell PA-C in triage. Full HPI, ROS, assessment and treatment plan per primary provider in the Main ED. 58 yo female with history of vertigo presents to the ER for evaluation of vertigo that started yesterday. she reports it feels like the room is spinning and she is nauseated and vomiting. no other neurologic symptoms. worse with movement and position changes, improve w/ eyes closed. symptoms started with sinus pressure and pain. actively vomiting in triage. seen here in December and had CTA head/neck that was negative. Plan: labs, EKG, treat and reassess Reevaluation(s) Reevaluation #1: Patient reports her symptoms have improved after treatment, she still feels somewhat dizzy. She has an appointment with ear nose and throat that she made. She feels that her symptoms are triggered after having COVID she has been having tinnitus on and off which she feels worsens her vertigo symptoms Time: 23:47 Medications Administered Discontinued Medications Generic Name Dose Route Start Last Admin Trade Name Anshuq PRN Reason Stop Dose Admin Sodium Chloride 1,000 mls @ 999 mls/hr 02/23/24 22:00 02/23/24 23:06 Ns IV 02/23/24 23:00 999 mls/hr .Q1H1M MARTINA Administration Lorazepam 1 mg 02/23/24 21:49 02/23/24 23:12 Lorazepam 2 Mg/Ml Vial IVPUSH 02/23/24 21:50 1 mg STAT STA Administration Meclizine HCl 50 mg 02/23/24 21:49 02/23/24 23:12 Meclizine Hcl 25 Mg Tablet PO 02/23/24 21:50 50 mg ONCE ONE Administration Ondansetron HCl 4 mg 02/23/24 21:49 02/23/24 23:12 Ondansetron Hcl 4 Mg/2 Ml Vial IVPUSH 02/23/24 21:50 4 mg ONCE ONE Administration Medical Decision Making Medical Decision Making MDM Narrative: 58-year-old female presents for evaluation of dizziness which she attributes to vertigo. I reviewed the patient's recent workups including a CT angiography from approximately 2 months ago. She has no focal neurologic deficits to warrant another CT angiography, I have a low suspicion for posterior stroke versus large vessel occlusion. Will treat her vertigo and re-evaluate. Patient's laboratories show no significant abnormalities warranting intervention Differential Diagnosis Differential Diagnoses: The differential diagnosis associated with the presentation includes Vertigo Dizziness Orthostasis Posterior CVA less likely Lab Data MDM Lab Attestation statement: I reviewed the patient's lab results. 02/23/24 14:40 02/23/24 14:40 Labs: Lab Results 02/23/24 02/23/24 Range/Units 14:40 19:26 WBC 9.3 (4.8-10.8) X10*3/uL RBC 4.59 (4.20-5.50) X10*6/uL Hgb 13.1 (12.0-16.0) g/dl Hct 38.5 (37.0-47.0) % MCV 83.9 (80.0-98.0) fL MCH 28.5 (27.0-33.0) pg MCHC 34.0 (31.0-35.0) g/dl RDW 14.2 (11.0-16.0) % Plt Count 261 (160-400) X10*3/uL MPV 11.1 (9.4-12.3) fL Immature Gran % (Auto) 0.3 (0.0-0.4) % Neut % (Auto) 77.2 H (45-73) % Lymph % (Auto) 17.6 L (20-40) % [place] % (Auto) 4.1 (2-11) % Eos % (Auto) 0.4 (0-4) % Baso % (Auto) 0.4 (0-2) % Lymph # (Auto) 1.6 (1.2-4.9) X10*3/uL [place] # (Auto) 0.4 (0.1-1.2) X10*3/uL Eos # (Auto) 0.0 (0.0-0.4) X10*3/uL Baso # (Auto) 0.0 (0.0-0.2) X10*3/uL Abs Immat Gran (auto) 0.03 (0.00-0.03) X10*3/uL Absolute Neuts (auto) 7.2 (2.0-8.3) x10*3/uL Absolute Nucleated RBC 0.000 (0.0-0.012) X10*3/uL Nucleated RBC % (auto) 0.0 (0.0-0.2) /100WBC Sodium 140 (135-145) mmol/L Potassium 4.2 (3.3-5.1) mmol/L Chloride 106 (96-108) mmol/L Carbon Dioxide 24 (22-29) mmol/L Anion Gap 14 (12-20) BUN 12 (9-16) mg/dL Creatinine 0.88 (0.5-1.4) mg/dL Estim Creat Clear Calc 69.6 Estimated GFR > 60 Random Glucose 151 H (60-115) mg/dL Calcium 10.3 H D (8.4-10.2) mg/dL Magnesium 1.9 (1.6-2.6) mg/dL Total Bilirubin 0.3 (0.0-1.0) mg/dL Direct Bilirubin 0.1 (0.0-0.5) mg/dL AST 22 (5-31) U/L ALT 21 (0-31) U/L Alkaline Phosphatase 65 (39-117) U/L Total Protein 8.3 H (6.5-8.0) g/dL Albumin 4.5 (3.5-5.0) g/dL Urine Color Yellow Urine Appearance Turbid Urine pH 5.0 (5.0-9.0) Ur Specific [place] 1.025 (1.005-1.025) Urine Protein 30 (1+) H (Neg-Trace) mg/dL Urine Glucose (UA) Negative (Negative) mg/dL Urine Ketones Negative (Negative) mg/dL Urine Blood Negative (Negative) Urine Nitrite Negative (Negative) Ur Leukocyte Esterase Negative (Negative) Urine RBC 0-2 (0-2) /HPF Urine WBC 0-5 (0-5) /HPF Ur Squamous Epith Cells 0-2 (0-2) /HPF Urine Bacteria None Seen (None Seen) Hyaline Casts 0-2 (0-2) /LPF Influenza Type A (PCR) NEGATIVE (Negative) Influenza Type B (PCR) NEGATIVE (Negative) RSV RNA Qual (PCR) NEGATIVE (Negative) SARS-CoV-2 RNA (RT-PCR) NEGATIVE (Negative) Independent Interpretation I performed an independent interpretation of an: EKG (Sinus bradycardia rate of 57 beats minute. No ischemic changes) Discharge Plan Discharge Clinical Impression: Peripheral positional vertigo Patient Disposition: Home, Self-Care Instructions: Vertigo (ED) Additional Instructions: Take meclizine 25 mg as needed for dizziness. Hydrate well. Follow-up with your primary doctor, return for new or worsening symptoms. 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
--- NOTE | 2024-02-23 13:56 | ECG_ITS ---
Test Reason : DIZZINESS Blood Pressure : / mmHG Vent. Rate : 057 BPM Atrial Rate : 057 BPM P-R Int : 128 ms QRS Dur : 090 ms QT Int : 398 ms P-R-T Axes : 036 003 020 degrees QTc Int : 387 ms Sinus bradycardia Otherwise normal ECG When compared with ECG of 18-DEC-2023 02:37, No significant change was found Referred By: Kina Maxwell Electronically Signed By:RITU ALBARADO
[2024-02-23 14:45] LABS: MANUAL DIFF FLAG NO
[2024-02-23 14:48] LABS: Basophils Percent Auto 0.4 % (0-2); Eosinophils Percent Auto 0.4 % (0-4); Hematocrit 38.5 % (37.0-47.0); Hemoglobin 13.1 g/dl (12.0-16.0); Imm Gran Abs Auto 0.03 X10*3/uL (0.00-0.03); Imm Gran Pct Auto 0.3 % (0.0-0.4); Lymphocytes Absolute Auto 1.6 X10*3/uL (1.2-4.9); Lymphocytes Percent Auto 17.6 % (20-40); Mean Corpuscular Hemoglobin 28.5 pg (27.0-33.0); Mean Corpuscular Volume 83.9 fL (80.0-98.0); Mean Platelet Volume 11.1 fL (9.4-12.3); Monocytes Absolute Auto 0.4 X10*3/uL (0.1-1.2); Monocytes Percent Auto 4.1 % (2-11); Neutrophils Absolute Auto 7.2 x10*3/uL (2.0-8.3); Neutrophils Percent Auto 77.2 % (45-73); Platelet Count 261 X10*3/uL (160-400); Red Blood Count 4.59 X10*6/uL (4.20-5.50); Red Cell Distribution Width 14.2 % (11.0-16.0); White Blood Count 9.3 X10*3/uL (4.8-10.8)
[2024-02-23 15:11] LABS: Alanine Aminotransferase 21 U/L (0-31); Albumin Level 4.5 g/dL (3.5-5.0); Alkaline Phosphatase 65 U/L (39-117); Anion Gap 14 (12-20); Aspartate Amino Transferase 22 U/L (5-31); Bilirubin Direct 0.1 mg/dL (0.0-0.5); Bilirubin Total 0.3 mg/dL (0.0-1.0); Blood Urea Nitrogen 12 mg/dL (9-16); Calcium 10.3 mg/dL (8.4-10.2); Carbon Dioxide 24 mmol/L (22-29); Chloride 106 mmol/L (96-108); Creatinine Clr Calc Pharmacy 69.6; Estimated Glomerular Filt Rate > 60; Glucose Random 151 mg/dL (60-115); Magnesium 1.9 mg/dL (1.6-2.6); Potassium 4.2 mmol/L (3.3-5.1); Sodium 140 mmol/L (135-145); Total Protein 8.3 g/dL (6.5-8.0)
[2024-02-23 15:31] LABS: Influenza A PCR NEGATIVE (Negative); Influenza B PCR NEGATIVE (Negative); Resp Syncy Virus RNA Qual PCR NEGATIVE (Negative); SARS COV2 PCR INHOUSE NEGATIVE (Negative)
[2024-02-23 20:49] VITALS: BP 121/68; PULSE 60; RESP 16; TEMP 36.6; O2SAT 97
[2024-02-23 21:24] LABS: Appearance Urine Turbid; Color Urine Yellow; Glucose Urine UA Negative (Negative); Leukocyte Esterase Urine Negative (Negative); Nitrite Urine Negative (Negative); Specific Gravity - Urine 1.025 (1.005-1.025); UMIC TRIGGER UACC YES; Urine Blood Negative (Negative); Urine Ketones Negative (Negative); Urine Protein 30 (1+) mg/dL (Neg-Trace)
[2024-02-23 21:25] LABS: Bacteria Urine None Seen (None Seen); Hyaline Casts Urine 0-2 /LPF (0-2); RBC Urine 0-2 /HPF (0-2); Squamous Epithelial Cell Urine 0-2 /HPF (0-2); WBC Urine 0-5 /HPF (0-5)
[2024-02-23] MEDS: 0.9 % Sodium Chloride 1,000 ML 999 ML IV (23:06)
[2024-02-23] MEDS: Meclizine HCl 25 MG TABLET 50 MG PO (23:12)
[2024-02-23] MEDS: LORazepam 2 MG/ML VIAL 1 MG IVPUSH (23:12)
[2024-02-23] MEDS: ondansetron HCL 4 MG/2 ML VIAL IVPUSH (23:12)
--- NOTE | 2024-02-23 23:18 | PC.NURSE ---
Assumed care of pt at 2300, #20 IV placed in R-AC by t/w and medications administered per AUG. IV fluids running.
[2024-02-24] MEDS: Meclizine HCl 25 MG TABLET 50 MG PO (01:03)
[2024-02-24 03:19] VITALS: BP 121/68; PULSE 60; RESP 16; TEMP 36.6; O2SAT 97
== END 2024-02-24 02:00 | disposition home or self-care (01) ==
PROVIDERS: Physician Assistant; Emergency Provider Emergency Medicine; PCP Internal Medicine
DX: H81.399 Other peripheral vertigo, unspecified ear (principal); Z03.818 Encounter for observation for suspected exposure to other biological agents ruled out; E78.00 Pure hypercholesterolemia, unspecified; Z79.899 Other long term (current) drug therapy
CPT/HCPCS: 0241U; 36415; 80048; 80076; 81001; 81003; 83735; 85025; 93005; 96361; 96374; 96375; 99285; J2060; J2405

== ENCOUNTER 2024-03-07 12:57 | Outpatient (AMB) | payer OTHER, SELFPAY ==
[2024-03-07 12:58] VITALS: BP 110/78; PULSE 73; O2SAT 98; BMI 27.5
--- NOTE | 2024-03-07 12:58 | A.OFFPC_ITS ---
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 Required: No Allergies fluticasone [Flonase] Allergy (Unknown, Verified 03/07/24 13:01) Unknown From FLONASE Allergy (Severe, Uncoded 03/07/24 13:01) HIVES IV dye Allergy (Intermediate, Uncoded 03/07/24 13:01) Hives Flonase Allergy (Unknown, Uncoded 03/07/24 13:01) Hives/Swelling Medication List - Last Reconciled 03/07/24 by Jailene Valera PA-C cholecalciferol (vitamin D3) 25 mcg PO DAILY meclizine 25 mg PO TID PRN meclizine 25 mg PO TID PRN Tobacco use date assessed: 01/03/24 Dental Screening Dental Screen Date: 01/03/24 HPI follow up Vertigo HPI Details 58 year old female with past history of hypercholesterolemia, impaired glucose tolerance, generalized anxiety disorder last seen December 2023 coming in for follow up on vertigo. In review of the notes, patient was seen in [facility] ED 02/23/2024 for vertigo was given meclizine and discharged home. Patient states her last vertigo episode lasted about 4-5 days. She went to see a chiropractor for her symptoms which helped resolve the episode. She has an appointment with ENT coming up this month. [facility] Medical History AFLP (acute fatty liver of ) Mammogram declined Toe fracture, left Melasma Pituitary microadenoma Peripheral neuropathy Hypercholesterolemia Vitamin D deficiency Overweight (BMI 25.0-29.9) Hot flashes Surgical History Hx of tubal ligation [place] teeth extracted Family History Father CAD (coronary artery disease) Mother No problems noted. Social History Housing: Apartment Alcohol intake: never Patient Tobacco Use Status: Never used Tobacco e-Cigarette/Vaping Use: Never Used Second Hand Smoke Exposure: No Current occupational status: employed Cognitive needs: No Hearing needs: No Vision needs: No Questionnaire Thrive Questionnaire Date Thrive assessed: 06/26/21 Are you currently unemployed and looking for a job?: Yes AUDIT C Alcohol Use Questionnaire (AUDIT-C) 1. How often do you have a drink containing alcohol?: Never 2. How many drinks containing alcohol do you have on a typical day when you are drinking?: 1 or 2 (0) 3. How often do you have six or more drinks on one occasion?: Never Total Score: 0 SANTIAGO-7 AMB Questionnaire SANTIAGO-7 Date SANTIAGO - 7 assessed: 01/03/24 Source: Developed by Drs. Owen Malhotra, Tiff Collado, Thien Ivey and colleagues, with an educational mellisa from [employer]. Review of Systems Const Denies body aches, Denies chills, Denies fever(s) and Denies headache(s) Eyes Details: right eye murillo ENT Reports vertigo, Reports dizziness, Denies otalgia, Denies headache(s), Denies sinus pain, Denies sinus pressure and Denies sore throat Card Denies chest pain, Denies edema, Denies leg edema and Denies dyspnea Resp Denies dyspnea GI Reports no additional complaints Reports no additional complaints Musc Reports no additional complaints Neuro Reports vertigo, Reports dizziness and Denies headache(s) Physical exam (Primary Care) Vital Signs: Last Vital Signs Pulse 73 03/07/24 12:58 BP 110/78 03/07/24 12:58 Pulse Ox 98 03/07/24 12:58 Oxygen Delivery Method Room Air 03/07/24 12:58 BMI result Body Mass Index 27.5 Tobacco/Smoking Status: Tobacco use Status Tobacco use date assessed 01/03/24 03/07/24 12:59 Patient Tobacco Use Status Never used Tobacco 03/07/24 12:59 e-Cigarette/Vaping Use Never Used 03/07/24 12:59 Thrive Assessment: Date of Thrive Assessment Date Thrive assessed 06/26/21 03/07/24 12:59 Const General: cooperative, healthy appearing, comfortable and no acute distress Orientation/consciousness: patient oriented x3 HENMT Head: Yes normocephalic Ears: hearing grossly normal bilaterally General nose exam: Normal external nose present Eyes General: appearance normal, both eyes and all related structures Conjunctivae: conjunctivae normal Pupils: Equal, round and reactive pupils present EOM: EOMs intact bilaterally and No Nystagmus present Neck Neck: Yes full ROM and Yes no lymphadenopathy Resp Effort & Inspection: normal respiratory effort Auscultation: clear to auscultation bilaterally, no crackles, no rales, no rhonchi and no wheezes Cardio Rate: regular rate Rhythm: regular rhythm Skin General skin exam: no rashes or lesions noted Neuro General: patient oriented x3 Cranial nerves: Yes Equal, round and reactive pupils present and No Nystagmus present Gait exam (Neuro): Normal gait present Extrem General: Yes normal to inspection, Yes full ROM and No edema Psych Affect: normal affect Attitude: cooperative Insight: Good insight present (Psych) Judgement: Good judgement present (Psych) Coding Level of Care Code Est Pt Level 4 (29093) Diagnoses BPPV (benign paroxysmal positional vertigo) H81.10 Impaired glucose tolerance R73.02 Hypercholesterolemia E78.00 Assessment & Plan Assessment & Plan (1) BPPV (benign paroxysmal positional vertigo): Code(s): H81.10 - Benign paroxysmal vertigo, unspecified ear Category: Medical Plan: Referral placed for ear nose and throat and patient has an appointment coming up this month. Referral placed for vestibular therapy at this time and continue to use meclizine as needed for vertigo episodes. (2) Impaired glucose tolerance: Code(s): R73.02 - Impaired glucose tolerance (oral) Category: Medical Plan: Decrease the amount of carbohydrates such as pasta, bread, rice, and potatoes and limit the amount of sweets. Although fruits are generally healthy they should be eaten in moderation as they are still high in sugar. 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 (3) Hypercholesterolemia: Code(s): E78.00 - Pure hypercholesterolemia, unspecified Category: Medical Plan: Cholesterol elevated on last labs patient has a history of elevated cholesterol. She is declining medication at this time and would like to try diet and exercise. Referral placed for dietitian at this time and follow up in 2 months with repeat labs. Advised patient if cholesterol remains elevated we may need to add medication. Plan This note was constructed using voice recognition software. While every effort has been made to ensure accuracy and jewelry casting model maker, still areas may have been included sometimes these areas may affect the content or meeting of the given symptoms. Total time spent caring for the patient today was 30 minutes. This includes time spent before the visit reviewing the chart, time spent during the visit, and time spent after the visit and documentation. Orders: Orders PT Evaluation and Treatment Today H81.10 - Benign paroxysmal vertigo, unspecified ear Lipid Panel 2 Months Z00.00 - Encounter for general adult medical examination without abnormal findings Referrals Client Liaison Nutrition Referral E78.00 - Pure hypercholesterolemia, unspecified, R73.02 - Impaired glucose tolerance (oral) Medications: Refilled cholecalciferol (vitamin D3) 25 mcg PO DAILY 90 tabs 0RF R79.89 - Other specified abnormal findings of blood chemistry
== END 2024-03-07 13:39 | disposition home or self-care (01) ==
PROVIDERS: PCP Internal Medicine
DX: H81.10 Benign paroxysmal vertigo, unspecified ear (principal); R73.02 Impaired glucose tolerance (oral); E78.00 Pure hypercholesterolemia, unspecified

== ENCOUNTER → 2024-03-07 12:57 | Outpatient (BNVA) | payer OTHER, SELFPAY | PROVIDERS: PCP Internal Medicine | DX: H81.10 Benign paroxysmal vertigo, unspecified ear (principal); R73.02 Impaired glucose tolerance (oral); E78.00 Pure hypercholesterolemia, unspecified | CPT/HCPCS: 99212 ==

== ENCOUNTER 2024-03-26 08:29 | Outpatient (AMB) | payer OTHER, SELFPAY ==
--- NOTE | 2024-03-22 09:03 | A.OFFVIS_ITS ---
VS Expanded 03/26/24 08:35 Height 5 ft 3 in Weight 159 lb 2.78 oz BMI 28.2 Intake Visit Reasons: Impaired glucose tolerance (oral) Allergies fluticasone [Flonase] Allergy (Unknown, Verified 03/07/24 13:01) Unknown From FLONASE Allergy (Severe, Uncoded 03/07/24 13:01) HIVES IV dye Allergy (Intermediate, Uncoded 03/07/24 13:01) Hives Flonase Allergy (Unknown, Uncoded 03/07/24 13:01) Hives/Swelling Nutrition Presentation Details: Pt presents for IFG. Pt was referred by PCP Pt reports having lack of meal routine and reports increased intake of sweets throughout the day BS Monitoring Most Recent Diabetes Results: Cholesterol 340 mg/dL (<200) H 01/23/24 HDL Cholesterol 43 mg/dL (>40) 01/23/24 Triglycerides 353 mg/dL (<150) H 01/23/24 Creatinine 0.88 mg/dL (0.5-1.4) 02/23/24 Blood Urea Nitrogen 12 mg/dL (9-16) 02/23/24 Sodium 140 mmol/L (135-145) 02/23/24 Potassium 4.2 mmol/L (3.3-5.1) 02/23/24 Chloride 106 mmol/L (96-108) 02/23/24 Carbon Dioxide 24 mmol/L (22-29) 02/23/24 Calcium 10.3 mg/dL (8.4-10.2) H 02/23/24 AST 22 U/L (5-31) 02/23/24 ALT 21 U/L (0-31) 02/23/24 Total Protein 8.3 g/dL (6.5-8.0) H 02/23/24 Albumin 4.5 g/dL (3.5-5.0) 02/23/24 QMP-Ymakvle-Qg.Jeor Equation Height: 5 ft 3 in Weight: 159 lb Resting Metabolic Rate: 1269.34 Calculated Activity Level: Sedentary Calories Needed to Maintain Weight: 1523.21 Diagnosis Nutrition problem #1: food nutri know defi As related to (etiology) #1: diagnosis (IFG, Elevated Tg> 300) As evidenced by (sign/symptom) #1: knowledge deficit of diet [facility] Medical History AFLP (acute fatty liver of ) Mammogram declined Toe fracture, left Melasma Pituitary microadenoma Peripheral neuropathy Hypercholesterolemia Vitamin D deficiency Overweight (BMI 25.0-29.9) Hot flashes Surgical History Hx of tubal ligation [place] teeth extracted Family History Father CAD (coronary artery disease) Mother No problems noted. Social History Housing: Apartment Alcohol intake: never Patient Tobacco Use Status: Never used Tobacco e-Cigarette/Vaping Use: Never Used Second Hand Smoke Exposure: No Current occupational status: employed Cognitive needs: No Hearing needs: No Vision needs: No Assessment & Plan Assessment & Plan (1) Impaired glucose tolerance: Code(s): R73.02 - Impaired glucose tolerance (oral) Category: Medical Plan: Wt: 72 Kg ( 03/29 ) Est kcal needs as per MSJ: 1600 (40% carb, 30% protein/fat) Est fluid needs as per 25-30 ml/d: 2200 Est prot per day as per 1 g/kg bw: 72 Recommend fiber intake : 8-10 g per day and gradually increase to 25-28 g per day for women and 35-38 g for men or as tolerated Recommend sodium intake per day : less than 2300 mg Educated patient on: ( R = reviewed V = verbalizes understanding N/R = needs review N/A = not applicable * Food sources of carbohydrate, adequate serving sizes and its role in various health conditions: R * Differences between complex carbohydrates a simple carbohydrates, role of fiber in diet: R V N/R * Lean protein sources of foods: R V NR * Differences between types of fats and role in diet (mono on saturated fat fatty acids, saturated fatty acids, trans fats): R * Food sources of sodium in salt and healthy modifications for heart health in kidney health: R V R/V * Vitamins and minerals: R V N/R * Healthy plate method concept: R V N/R * Physical activity: Benefits a precaution: R V N/R * Hypoglycemia protocol (rule of 15): R V N/R * Dietary prevention of Hyperglycemia: R V R/V Patient Instructions: Work on having 3 scheduled meals per day and 1-2 snack Meals consisting of 45 g of carbs or less and snack 0-20 g carbs Choose whole grain, fiber rich foods , seeds, fruits, vegetables see meal plan provided Coding Level of Care Code Nutr Indiv Intake (07161) Diagnoses Impaired glucose tolerance R73.02 Time Spent (min) 30
[2024-03-26 08:35] VITALS: BMI 28.2
[2024-03-29 09:11] VITALS: BMI 28.2
== END 2024-03-26 09:04 | disposition home or self-care (01) ==
PROVIDERS: PCP Internal Medicine; Visit Provider Dietitian, Registered
DX: R73.02 Impaired glucose tolerance (oral) (principal)

== ENCOUNTER → 2024-03-26 08:29 | Outpatient (BNVA) | payer OTHER, SELFPAY | PROVIDERS: PCP Internal Medicine; Visit Provider Dietitian, Registered | DX: R73.02 Impaired glucose tolerance (oral) (principal); Z71.3 Dietary counseling and surveillance | CPT/HCPCS: 97802 ==

== ENCOUNTER 2024-03-30 08:00 | Outpatient (RCR) | payer OTHER, SELFPAY ==
[2024-03-21 08:56] VITALS: BP 111/64; PULSE 61
--- NOTE | 2024-03-23 13:23 | MHC.PT.EP ---
[facility] Office [place] Office [place] Office [address] [phone] F: [phone] F: [phone] F: [phone] F: [phone] Physical Therapy Plan of Care Date of Evaluation: 03/21/24 Date of Surgery: Diagnosis: Benign paroxysmal vertigo, unspecified ear Assessment: Pt is a pleasant 58yo F who presents to PT with dizziness. She presents to PT with current impairments in dizziness, decreased balance/proprioception, and impaired gait. Upon assessment, she tested negative for posterior canal BPPV. She has mild balance impairments with static balance assessment. She is a good candidate for skilled PT in order to address current impairments to facilitate return to PLOF. She is recommended to be seen 2x/week for 4 weeks and will be reassessed at that time Frequency and Duration: The patient will be seen 2x/week for 4 weeks Short Term Goals: Pt will be I with HEP to promote self management of symptoms Pt will perform seated head turns without dizziness or instability Care Transitions Nurse Goals: Pt will ambulate on even and uneven surfaces without dizziness or instability Pt will ambulate with horizontal head turns without dizziness or instability to assist with functional tasks such as grocery shopping Treatment Plan: Modalities to reduce pain, spasms and effusion. Manual therapy to restore motion and function. Therapeutic exercise to improve strength and flexibility. Neuromuscular re-education for posture and balance. Therapeutic activities to return to functional activities of daily living. Electronically signed by: Hyacinth Garber, PT, DPT Please sign and return to therapist. Thank you for your referral.
--- NOTE | 2024-07-09 11:05 | MHC.PT.DC ---
[facility] [place] Office [place] Office [place] Office [address] Helga Hernandez [address] [phone] F: [phone] F: [phone] F: [phone] F: [phone] Physical Therapy Discharge Report Diagnosis: Benign paroxysmal vertigo, unspecified ear Date of Surgery: Date of Evaluation: 03/21/24 Date of Discharge: 07/09/24 Treatments to Date: 3 Cancellations to Date: No Shows to Date: Discharge Status: Discharge Summary: Pt was seen for PT from 03/21/24-03/30/24. Pt made good progress throughout PT and per last treatment note she was able to perform all tasks without exacerbation of symptoms. Her chart was left open for 30 days and at last attended session she was instructed to call if her symptoms returned. Pt is being D/C from skilled PT as she has not attended or called to reschedule in > 30 days. Her current level of function is unknown at this time Electronically signed by: Hyacinth Garber, PT, DPT Please sign and return to therapist. Thank you for your referral.
== END 2024-07-09 11:02 | disposition home or self-care (01) ==
LOC: HO.PT 08:00
PROVIDERS: PCP Internal Medicine
DX: H81.10 Benign paroxysmal vertigo, unspecified ear (principal)
CPT/HCPCS: 97112; 97161

== ENCOUNTER 2024-05-08 11:29 | Outpatient (AMB) | payer OTHER, SELFPAY ==
[2024-05-08 11:32] VITALS: BP 116/80; PULSE 67; O2SAT 97; BMI 26.7
--- NOTE | 2024-05-08 11:32 | A.OFFPC_ITS ---
Vital Signs 05/08/24 11:32 Height 5 ft 3 in Weight 151 lb BMI 26.7 BP 116/80 Blood Pressure Location Lt brachial Position Sitting Pulse 67 Pulse Source Pulse Oximeter Pulse Oximetry (%) 97 Oxygen Delivery Method Room Air Intake Visit Reasons: 2 month f/u Allergies fluticasone [Flonase] Allergy (Unknown, Verified 05/08/24 11:52) Unknown From FLONASE Allergy (Severe, Uncoded 05/08/24 11:52) HIVES IV dye Allergy (Intermediate, Uncoded 05/08/24 11:52) Hives Flonase Allergy (Unknown, Uncoded 05/08/24 11:52) Hives/Swelling Medication List - Last Reconciled 05/08/24 by Jailene Valera PA-C cholecalciferol (vitamin D3) 25 mcg PO DAILY meclizine 25 mg PO TID PRN meclizine 25 mg PO TID PRN Tobacco use date assessed: 01/03/24 Dental Screening Dental Screen Date: 01/03/24 HPI 2 month f/u HPI Details 58-year-old female with past medical his tory of hypercholesterolemia, impaired glucose tolerance, generalized anxiety disorder last seen March 2024 coming in for follow up on vertigo. Patient was referred to ear nose and throat at her last visit and referred to vestibular therapy advised to continue on meclizine. Patient was also referred to dietitian for hypercholesterolemia. Patient was seen by ENT 04/04/2024 diagnosed with bilateral tinnitus advised to avoid caffeine, salty meals and NSAIDs. Patient states her vertigo has been improving and has not had any episodes since. She did go to vestibular therapy and was given at home exercises and advised to follow up in a few months. She also mentioned she has been going to a chiropractor for cervical spine pain and has seen an improvement in her back pain. She also saw nutrition and found this helpful for her prediabetes and hypercholesterolemia diagnosis. She has no acute concerns today [facility] Medical History AFLP (acute fatty liver of ) Mammogram declined Toe fracture, left Melasma Pituitary microadenoma Peripheral neuropathy Hypercholesterolemia Vitamin D deficiency Overweight (BMI 25.0-29.9) Hot flashes Surgical History Hx of tubal ligation [place] teeth extracted Family History Father CAD (coronary artery disease) Mother No problems noted. Social History Housing: Apartment Alcohol intake: never Patient Tobacco Use Status: Never used Tobacco e-Cigarette/Vaping Use: Never Used Second Hand Smoke Exposure: No Current occupational status: employed Cognitive needs: No Hearing needs: No Vision needs: No Questionnaire Thrive Questionnaire Date Thrive assessed: 06/26/21 Are you currently unemployed and looking for a job?: Yes SANTIAGO-7 AMB Questionnaire SANTIAGO-7 Date SANTIAGO - 7 assessed: 01/03/24 Source: Developed by Drs. Owen Malhotra, Tiff Collado, Thien Ivey and colleagues, with an educational mellisa from [employer]. Review of Systems Const Denies body aches, Denies chills, Denies fever(s), Denies headache(s) and Denies poor appetite Eyes Reports no additional complaints ENT Denies vertigo, Denies dizziness, Denies headache(s) and Reports tinnitus Card Denies chest pain, Denies syncope, Denies edema, Denies irregular heart rhythm, Denies lightheadedness and Denies dyspnea Resp Denies cough and Denies dyspnea GI Denies nausea and Denies vomiting Reports no additional complaints Musc Reports no additional complaints and Denies abnormal gait Skin/Breast Reports system reviewed and no additional complaints, except as documented Neuro Denies abnormal gait, Denies vertigo, Denies dizziness, Denies syncope and Denies headache(s) Psych Reports no additional complaints Physical exam (Primary Care) Vital Signs: Last Vital Signs Pulse 67 05/08/24 11:32 BP 116/80 05/08/24 11:32 Pulse Ox 97 05/08/24 11:32 Oxygen Delivery Method Room Air 05/08/24 11:32 BMI result Body Mass Index 26.7 Tobacco/Smoking Status: Tobacco use Status Tobacco use date assessed 01/03/24 05/08/24 11:32 Patient Tobacco Use Status Never used Tobacco 05/08/24 11:32 e-Cigarette/Vaping Use Never Used 12/03/24 11:32 Thrive Assessment: Date of Thrive Assessment Date Thrive assessed 06/26/21 05/08/24 11:32 Const General: cooperative, healthy appearing, comfortable and no acute distress Orientation/consciousness: patient oriented x3 HENMT Head: Yes normocephalic Ears: hearing grossly normal bilaterally General nose exam: Normal external nose present Eyes General: appearance normal, both eyes and all related structures Conjunctivae: conjunctivae normal Neck Neck: Yes full ROM and Yes no lymphadenopathy Resp Effort & Inspection: normal respiratory effort Auscultation: clear to auscultation bilaterally, no crackles, no rales, no rhonchi and no wheezes Cardio Rate: regular rate Rhythm: regular rhythm Skin General skin exam: no rashes or lesions noted Neuro General: patient oriented x3 Gait exam (Neuro): Normal gait present Extrem General: Yes normal to inspection, Yes full ROM and No edema Psych Affect: normal affect Attitude: cooperative Insight: Good insight present (Psych) Judgement: Good judgement present (Psych) Coding Level of Care Code Est Pt Level 4 (92077) Diagnoses Impaired glucose tolerance R73.02 BPPV (benign paroxysmal positional vertigo) H81.10 Tinnitus of both ears H93.13 Laterality: bilateral Hypercholesterolemia E78.00 Assessment & Plan Assessment & Plan (1) Impaired glucose tolerance: Code(s): R73.02 - Impaired glucose tolerance (oral) Category: Medical Plan: Decrease the amount of carbohydrates such as pasta, bread, rice, and potatoes and limit the amount of sweets. Although fruits are generally healthy they should be eaten in moderation as they are still high in sugar. Working with nutrition we will repeat A1c (2) BPPV (benign paroxysmal positional vertigo): Code(s): H81.10 - Benign paroxysmal vertigo, unspecified ear Category: Medical Plan: Underwent vestibular therapy and has not had any recurrence since. (3) Tinnitus: Code(s): H93.19 - Tinnitus, unspecified ear Category: Medical Qualifiers: Laterality: bilateral Qualified Code(s): H93.13 - Tinnitus, bilateral Plan: Seen by ear nose and throat advised to avoid high salt intake, stay well hydrated and avoid NSAIDs. (4) Hypercholesterolemia: Code(s): E78.00 - Pure hypercholesterolemia, unspecified Category: Medical Plan: Avoid foods that are high in cholesterol such as red meat, fried foods, eggs and baked goods. Triglyceride goal of less than 150 and LDL goal of less than 130. Not currently on medical management advised patient to have blood work done and discuss treatment options if cholesterol is still elevated and follow up in 3 months Plan This note was constructed using voice recognition software. While every effort has been made to ensure accuracy and boxing and pressing supervisor, still areas may have been included sometimes these areas may affect the content or meeting of the given symptoms. Total time spent caring for the patient today was 20 minutes. This includes time spent before the visit reviewing the chart, time spent during the visit, and time spent after the visit and documentation. Orders: Orders Hemoglobin A1c Today R73.02 - Impaired glucose tolerance (oral) Vitamin D 25-OH (D2 and D3) Today E55.9 - Vitamin D deficiency, unspecified
== END 2024-05-08 12:20 | disposition home or self-care (01) ==
PROVIDERS: PCP Internal Medicine
DX: R73.02 Impaired glucose tolerance (oral) (principal); H81.10 Benign paroxysmal vertigo, unspecified ear; H93.13 Tinnitus, bilateral; E78.00 Pure hypercholesterolemia, unspecified

== ENCOUNTER → 2024-05-08 11:29 | Outpatient (BNVA) | payer OTHER, SELFPAY | PROVIDERS: PCP Internal Medicine | DX: R73.02 Impaired glucose tolerance (oral) (principal); H81.10 Benign paroxysmal vertigo, unspecified ear; H93.13 Tinnitus, bilateral; E78.00 Pure hypercholesterolemia, unspecified | CPT/HCPCS: 99212 ==

== ENCOUNTER 2024-08-13 10:19 | Outpatient (REF) | payer OTHER, SELFPAY ==
[2024-08-13 13:48] LABS: Appearance Urine Cloudy; Color Urine Yellow; Glucose Urine UA Negative (Negative); Leukocyte Esterase Urine Large (3+) (Negative); Nitrite Urine Negative (Negative); PH 5.5 (5.0-9.0); UMIC TRIGGER UACC YES; Urine Blood Large (3+) (Negative); Urine Ketones 15 mg/dL (Negative); Urine Protein 30 (1+) mg/dL (Neg-Trace)
[2024-08-13 13:52] LABS: Bacteria Urine 1+ (None Seen); Squamous Epithelial Cell Urine 0-2 /HPF (0-2); UACC Culture Trigger YES; WBC Urine >50 /HPF (0-5)
== END 2024-08-13 10:20 | disposition home or self-care (01) ==
LOC: HO.LAB 10:19
PROVIDERS: Nurse Practitioner Family; PCP Internal Medicine
DX: R30.0 Dysuria (principal)
CPT/HCPCS: 81001; 81003; 87086; 87088; 87186; 99212

== ENCOUNTER 2024-08-13 10:19 | Outpatient (AMB) | payer OTHER, SELFPAY ==
--- NOTE | 2024-08-13 10:22 | MHC.OFFWIV ---
Intake Vital Signs 08/13/24 10:29 Weight 150 lb BP 114/70 Blood Pressure Location Rt brachial Position Sitting Pulse 86 Pulse Source Pulse Oximeter Temp 98.1 F Temp Source Oral Pulse Oximetry (%) 98 Oxygen Delivery Method Room Air Intake Visit Reasons: EP UTI? Intake Note: Patient here for abdominal pain, lower back pain, dark urine and burning sensation on urination that started Tuesday. Patient Tobacco Use Status: Never used Tobacco Allergies fluticasone [Flonase] Allergy (Unknown, Verified 08/13/24 10:28) Unknown From FLONASE Allergy (Severe, Uncoded 08/13/24 10:28) HIVES IV dye Allergy (Intermediate, Uncoded 08/13/24 10:28) Hives Flonase Allergy (Unknown, Uncoded 08/13/24 10:28) Hives/Swelling Do you need a note to return to daycare/school/sports/work: No HPI HPI Comments History of Present Illness Details 58 y/o female patient who presents to the walk in clinic with c/o lower abdominal pain associated with Urinary symptoms since Tuesday. Denies vaginal symptoms. Denies Fevers, chills, nausea or vomiting. [facility] Medical History (Updated 08/13/24 @ 10:46 by Xochitl Null NP) Dysuria AFLP (acute fatty liver of ) Mammogram declined Toe fracture, left Melasma Pituitary microadenoma Peripheral neuropathy Hypercholesterolemia Vitamin D deficiency Overweight (BMI 25.0-29.9) Hot flashes Surgical History Hx of tubal ligation [place] teeth extracted Family History Father CAD (coronary artery disease) Mother No problems noted. Social History Housing: Apartment Alcohol intake: never Patient Tobacco Use Status: Never used Tobacco e-Cigarette/Vaping Use: Never Used Second Hand Smoke Exposure: No Current occupational status: employed Cognitive needs: No Hearing needs: No Vision needs: No Review of Systems Const All systems reviewed & are unremarkable except as noted in HPI and below Physical Exam Vital Signs: Last Vital Signs Temp 98.1 F 08/13/24 10:29 Pulse 86 08/13/24 10:29 BP 114/70 08/13/24 10:29 Pulse Ox 98 08/13/24 10:29 Oxygen Delivery Method Room Air 08/13/24 10:29 Const General: cooperative and no acute distress Nutritional Appearance: overweight Orientation/consciousness: patient oriented x3 GI Palpation (GI): Soft to palpation Auscultation: normal bowel sounds Other: Pelvic Exam Deferred. General: Yes no CVA tenderness Back/Spine/Pelvis Back: no CVA tenderness and back tenderness Neuro General: patient oriented x3, gait normal and moves all extremities Psych Speech and movement: Normal speech and movement present Assessment & Plan Assessment & Plan (1) Dysuria: Code(s): R30.0 - Dysuria Plan: Ordered U/A and culture. Advised to Hydrate well with water NSAIDs for pain relief AZO for Urinary symptom relief Orders: Orders UA CC w/rflx Micro + Cult Today R30.0 - Dysuria Coding Level of Care Code Est Pt Level 4 (60621) Diagnoses Dysuria R30.0 Time Spent (min) 20
[2024-08-13 10:29] VITALS: BP 114/70; PULSE 86; TEMP 36.7; O2SAT 98
--- OUTSIDE RECORDS SUMMARY | 2024-08-13 11:37 | XMS_ITS | Data Portability ---
Author Organization [place] - [facility], Allergy Address [address] [place] [phone] Care Team Providers Care [employer]over Name Role Phone JUSTUS CUTLER Primary Care Provider [phone] Assessment No assessment recorded. Plan of Treatment Reminders Order Date Submit Date Provider Last Modified By Organization Details Last Modified Time Details Appointments Establish ed 15 2024 01:00P M GLENNY LUIS PA-C Not available Not available Not available Lab None recorded. Referral None recorded. Procedures None recorded. Surgeries None recorded. Imaging None recorded. Medication Orders None recorded. Patient TargetsNo targets recorded. Patient InstructionsNo instructions recorded. Reason for Referral None Reported. Results Created Date Observation Date Name Description Value Unit Range Abnormal Flag Note LastModifiedBy Organization Detail LastModifiedTime 04/09/20 24 audio gram No observ ation record ed. BARCODE Not Available 2023 15:09:40 Result Notes None recorded. Problems Name Problem SNOMED Code Status Onset Date Resolution Date Notes Provider Name and Address Organization Details Recorded Time Sensorineur al hearing loss of bilateral ears 298390830 Active 2023 GIRMA HATHAWAY [address] [address], [place], [phone], [facility] 4 13:43:50 Bilateral tinnitus [id number] Active 2023 BAM ZELAYA MD [address] [facility] [address], [place], [phone], [facility] 4 13:55:46 Problem Notes None recorded. Procedures Surgical History Date Name Laterality Status Provider Name and Address Organization Details Recorded Time Comp Audio with Tymps (49030 & 15907) completed GIRMA HATHAWAY [address], [phone], [facility] 04/04/2024 13:43:35 ligation of fallopian tube completed BAM MUNOZ MD [address], [phone], [facility] 04/04/2024 13:53:06 surgical removal of third molar tooth completed BAM MUNOZ MD [address], [phone], [facility] 04/04/2024 13:53:19 Imaging Results Imaging Date Name Status LastModified by Organiz ation Details LastModified Time 04/09/2024 audiogram completed BARCODE Information no t available 04/09/2024 15:09:40 Procedure Notes None recorded. Medical Equipment None Reported. Allergies Allergen ID Allergen Name Allergen Category Reaction Reaction Severity Criticality Documentation Date Start Date Code Code System Note Provider Name and Address Organization Details Recorded Time 334944 Flonase medicatio n Not available Not available Not available 04/04/2024 93734 RxNorm Eunice foley [facility] 13:48:45 Medications Name Sig Start Date Stop Date Status Note LastModified by Organization Details LastModified Time azithromyci n 250 mg tablet TAKE 2 TABLETS BY MOUTH TODAY, THEN TAKE 1 TABLET DAILY FOR 4 DAYS DIRECTED 04/04 completed Not Available Not Available Not Available prednisone 20 mg tablet TAKE 1 TABLET BY MOUTH EVERY DAY FOR 3 DAYS 04/04 completed Not Available Not Available Not Available meclizine 25 mg tablet TAKE 1 TABLET BY MOUTH THREE TIMES A DAY NEEDED FOR DIZZINESS 04/04 completed Not Available Not Available Not Available cholecalcif elena (vitamin D3) 25 mcg (1,000 unit) tablet TAKE 1 TABLET ORALLY DAILY active Not Available Not Available No t Available Vitals Date Recorded Body height Body mass index (BMI) Body weight Provider Name and Address Organization Details Last Updated DateTime 04/04/2024 162.56 cm 27.3 kg/m2 71358.19 g Eunice Potvin [place] - [facility] 04/04/2024 13:48:36 Social History None recorded. Functional Status None recorded. Mental Status None recorded. Family History Nothing Reported. Medical History Condition Response Anemia Y Migraines Y Gynecological HistoryNo gynecological history recorded. Obstetrics History GPAL:G 0 P 0 0 0 0 Past Encounters Encounter ID Performer Location Encounter Start Date Encounter Closed Date Diagnosis/Indication Diagnosis SNOMED-CT Code Diagnosis ICD10 Code Diagnosis Note [id number] BAM HYLTON MD [facility] [address] [phone] 04/04/2024 13:09:24 04/04/2024 14:02:52 Sensorineural hearing loss of bilateral ears [id number] H90.3 Audiologic al evaluation results: Right ear: {{Normal* Normal through 2 kHz Mild M oderate Mo derately-s evere Elizabeth re Profoun d}} {{hearing sloping to a mild* slop ing to a moderate s loping to moderately severe slo ping to severe slo ping to profound f lat high frequency low frequency mid frequency cookie bite baker curve}} {{with sen sorineural hearing loss with* cond uctive hearing loss with mixed hearing loss with}} {{excellen t* good fa ir poor no measurable }} word recognitio n. Left ear: {{Normal* Normal through 2 kHz Mild M oderate Mo derately-s evere Elizabeth re Profoun d}} {{hearing sloping to a mild* slop ing to a moderate s loping to moderately severe slo ping to severe slo ping to profound f lat high frequency low frequency mid frequency cookie bite baker curve}} {{with sen sorineural hearing loss with* cond uctive hearing loss with mixed hearing loss with}} {{excellen t* good fa ir poor no measurable }} word recognitio n. Tympanomet ry: Right Ear:{{Type A* Type As Type Ad Type C Type C, shallow & rounded Ty pe B Type B with large volume Cou ld not maintain a hermetic seal}} Left Ear:{{Type A* Type As Type Ad Type C Type C, shallow & rounded Ty pe B Type B with large volume Cou ld not maintain a hermetic seal}} Bilateral tinnitus 58443 [id number] 102 H93.13 Today we discussed the pathophysi ology of tinnitus and the absence of consistent ly successful pharmacolo gic treatments for tinnitus. We discussed masking strategies to decrease awareness of the tinnitus, including using a white noise machine, music, [employer] tinnitus rashard or television . We discussed how exposure to loud noise can worsen tinnitus so I recommende d hearing protection . We also discussed other ways to potentiall y help reduce awareness of tinnitus including avoidance of caffeine, salty meals and NSAIDs.Rec heck in 6 months Health Concerns Section Related Observation LastModified by Organization Detai ls LastModified Time None Recorded Concern Status LastModified by Organization Details LastModified Time None Recorded Advance Directives Directive None Recorded Payers Encounter Date Sequence Insurance Name Policy Number Policy Mccarty Covered Member ID Mccarty Member ID Guarantor Name 04/04/2024 1 [facility] (MEDICAID REPLACEMENT - HMO) TATIANNA Brantley [id number] Sasha Salinas Notes Date Note Type Note Provider Name and Address Organization Details Recorded Time 04/04/2024 text/html 5 months of bilateral tinnitus. Initially high pitched and now lower. 1 episode of vertigo in December for 1 days. End of February she had 4 days of imbalance. No hx of migraine. Noise definitely in both earsHx of noise exposureShe was drinking several cups of coffee and now zero but drinking green tea BAM MUNOZ MD [address] [place] [address], [phone], [facility] - [facility] 04/04/2024 15:25:19 OBGyn Episode No OBEpisode recorded.
== END 2024-08-13 11:01 | disposition home or self-care (01) ==
PROVIDERS: PCP Internal Medicine; Visit Provider Nurse Practitioner Family
DX: Z13.9 Encounter for screening, unspecified (principal); R30.0 Dysuria

== ENCOUNTER 2025-01-02 14:19 | Emergency (ER) | payer OTHER, SELFPAY ==
[2025-01-02 14:30] VITALS: BMI 26.6
--- NOTE | 2025-01-02 16:29 | ED.WOUNDLAC ---
HPI - Wound/Laceration General Chief Complaint: Wound/Laceration Stated Complaint: hand lac Time Seen by Provider: 01/02/25 15:15 Source: patient and RN notes reviewed Mode of arrival: ambulatory Limitations: no limitations History of Present Illness ED Provider: Samanta Montez PA-C HPI narrative: This is a 59-year-old female who presents emergency department for evaluation of laceration to left hand. Patient states that she accidentally lacerated her left hand while she was cutting a pineapple. She states that she applied salt a wound. She is unsure when her last tetanus shot was. No numbness or tingling. No current pain. No other complaints or concerns at this time. Onset (ago): day(s) Extremity Location: left: hand Patient tetanus UTD: Yes Context: accidental Associated symptoms: pain Related Data Previous Rx's ?Medication ?Instructions ?Recorded meclizine 25 mg tablet 25 mg PO TID PRN dizziness #20 tabs 02/23/24 cholecalciferol (vitamin D3) 25 25 mcg PO DAILY #90 tabs 03/07/24 mcg (1,000 unit) tablet ciprofloxacin HCl 500 mg tablet 500 mg PO Q12H 3 days #6 tabs 08/15/24 (Cipro) Allergies Allergy/AdvReac Type Severity Reaction Status Date / Time fluticasone (Flonase) Allergy Unknown Unknown Verified 01/02/25 14:32 From FLONASE Allergy Severe HIVES Uncoded 01/02/25 14:32 IV dye Allergy Intermediate Hives Uncoded 01/02/25 14:32 Flonase Allergy Unknown Hives/Swell Uncoded 01/02/25 14:32 ing Review of Systems Review of Systems: Yes all other systems are reviewed and are negative Constitutional: Constitutional: Reports as per HPI [facility] Past Medical History Medical History (Updated 01/02/25 @ 16:29 by REGLA Medina) Dysuria AFLP (acute fatty liver of ) Mammogram declined Toe fracture, left Melasma Pituitary microadenoma Peripheral neuropathy Hypercholesterolemia Vitamin D deficiency Overweight (BMI 25.0-29.9) Hot flashes Surgical History Hx of tubal ligation [place] teeth extracted Family History Family History Father CAD (coronary artery disease) Mother No problems noted. Social History Social History Housing: Apartment Alcohol intake: never Patient Tobacco Use Status: Never used Tobacco Smoked in Last 30 Days: No e-Cigarette/Vaping Use: Never Used Second Hand Smoke Exposure: No Use of substances other than those prescribed or required for medical reasons: No Advance Directives: No Advance Directives Information Provided: Yes Do you have a plan to hurt others: No Plan Current occupational status: employed Cognitive needs: No Hearing needs: No Vision needs: No Physical Exam Exam: Exam: General: Awake, alert, and oriented X3. No acute distress. HEENT: Normal inspection CVS: Normal heart rate and rhythm. Pulses normal. Respiratory: No respiratory distress Skin: Left hand, palmar aspect overlying the 2nd distal metacarpal, there is a 1mm superficial laceration noted. Extremities: Normal to inspection Neuro: Oriented X 3. No motor deficit. No sensory deficit. Vital Signs: Vital Signs: Last Vital Signs Temp 97.9 F 01/02/25 16:54 Pulse 88 01/02/25 16:54 Resp 16 01/02/25 16:54 BP 129/72 01/02/25 16:54 Pulse Ox 99 01/02/25 16:54 O2 Del Method Room Air 01/02/25 16:54 BMI result Body Mass Index 26.6 Medical Decision Making Medical Decision Making MDM Narrative: This is a 59-year-old female who presents emergency department with concerns of laceration to left palm. This was an accidental injury. 1 mm in size, superficial. Wound was soaked with saline and Betadine. I did apply 1 layer of Dermabond to the wound. Patient tolerated procedure well without any complications or concerns. Wound does not require any suture repair. Patient tolerated procedure well without any complications or concerns. Patient stable for discharge. Given wound care instructions. Differential Diagnosis Differential Diagnoses: The differential diagnosis associated with the presentation includes Laceration, contusion, puncture wound, foreign body, abrasion Discharge Plan Discharge Clinical Impression: Laceration of hand Patient Disposition: Home, Self-Care Instructions: Laceration (ED), Skin Adhesive Care (ED) Additional Instructions: You were seen in the emergency room after lacerating your left hand. Your laceration was superficial and did not require any sutures. Do not submerge wound, allow the skin glue to fall off on its own, do not pick at wound. Watch for any signs of infection including but not limited to increased redness, swelling, pain, if any of these occur, please return for re-evaluation. I offered to update your tetanus shot in the department today, you refused, please follow-up with your primary care physician. Prescriptions: No Action ciprofloxacin HCl [Cipro] 500 mg tablet 500 mg PO Q12H 3 Days Qty: 6 0RF meclizine 25 mg tablet 25 mg PO TID PRN (Reason: dizziness) Qty: 20 0RF cholecalciferol (vitamin D3) 25 mcg (1,000 unit) tablet 25 mcg PO DAILY Qty: 90 0RF Interventions: ED Discharge Assessment Last Done: 01/02/25 16:54 Discharge Date/Time: 01/02/25 16:55 Print Language: Italian
[2025-01-02 16:54] VITALS: BP 129/72; PULSE 88; RESP 16; TEMP 36.6; O2SAT 99
== END 2025-01-02 16:55 | disposition home or self-care (01) ==
PROVIDERS: Emergency Provider Emergency Medicine; PCP Internal Medicine
DX: S61.412A Laceration without foreign body of left hand, initial encounter (principal); W26.0XXA Contact with knife, initial encounter; Y93.G1 Activity, food preparation and clean up; Y92.9 Unspecified place or not applicable; Y99.9 Unspecified external cause status
CPT/HCPCS: 99282; 99284

== ENCOUNTER 2025-01-07 08:54 | Outpatient (AMB) | payer OTHER, SELFPAY ==
--- NOTE | 2025-01-07 09:05 | A.OFFPC_ITS ---
Vital Signs 01/07/25 09:06 01/07/25 09:34 Height 5 ft 5 in Weight 153 lb 6 oz BMI 25.5 BP 98/54 L 100/68 Blood Pressure Location Lt brachial Lt brachial Position Sitting Sitting Pulse 63 Pulse Source Pulse Oximeter Temp Source Temporal Artery Scan Pulse Oximetry (%) 98 Oxygen Delivery Method Room Air Intake Visit Reasons: PE Field Marketing Director Required: No Accompanied by: Self / Same As Patient Allergies fluticasone (Flonase) Allergy (Unknown, Verified 01/07/25 09:06) Unknown From FLONASE Allergy (Severe, Uncoded 01/07/25 09:06) HIVES IV dye Allergy (Intermediate, Uncoded 01/07/25 09:06) Hives Flonase Allergy (Unknown, Uncoded 01/07/25 09:06) Hives/Swelling Medication List - Last Reconciled 01/07/25 by Jailene Valera PA-C No Known Home Meds Tobacco use date assessed: 01/03/24 Dental Screening Dental Screen Date: 01/07/25 Did you have a dental visit in the last 12 months?: No Did you have a dental problem in the last 6 months where you did not have access to dental care?: No Was dental information given to patient?: Patient has dentist HPI PE HPI Details 59-year-old female with past medical his tory of hypercholesterolemia, impaired glucose tolerance, generalized anxiety disorder last seen 05/2024 coming in for annual exam. Presenting for a wellness visit and physical examination. Vertigo Improved with health careers instructor and physical therapy, allowing better mobility. Constipation occasional, related to low water and fiber intake. Mammogram: declined Eye exam: yearly in [place] Colonoscopy: Cologuard ordered Vaccinations: Td UTD, decline pneumonia PENDING SALE TO [facility] Medical History Dysuria AFLP (acute fatty liver of ) Mammogram declined Toe fracture, left Melasma Pituitary microadenoma Peripheral neuropathy Hypercholesterolemia Vitamin D deficiency Overweight (BMI 25.0-29.9) Hot flashes Surgical History Hx of tubal ligation [place] teeth extracted Family History Father CAD (coronary artery disease) Mother No problems noted. Social History Housing: Apartment Alcohol intake: never Patient Tobacco Use Status: Never used Tobacco e-Cigarette/Vaping Use: Never Used Second Hand Smoke Exposure: No Current occupational status: employed Cognitive needs: No Hearing needs: No Vision needs: No Questionnaire PHQ-9 Over the last 2 weeks, how often have you been bothered by any of the following problems? 1. Little interest or pleasure in doing things: not at all 2. Feeling down, depressed, or hopeless: not at all 3. Trouble falling or staying asleep, or sleeping too much: not at all 4. Feeling tired or having little energy: not at all 5. Poor appetite or overeating: not at all 6. Feeling bad about yourself - or that you are a failure or have let yourself or your family down: not at all 7. Trouble concentrating on things, such as reading the newspaper or watching television: not at all 8. Moving or speaking so slowly that other people could have noticed. Or the opposite - being so fidgety or restless that you have been moving around a lot more than usual: not at all 9. Thoughts that you would be better off or of hurting yourself in some way: not at all Total score: 0 Depression Screening Interpretation: Negative Depression Screening Done: Yes 14696 - PHQ-9 Billing: Yes Source: Developed by Drs. Owen Malhotra, Tiff Collado, Thien Ivey and colleagues, with an educational mellisa from [employer]. Thrive Questionnaire Date Thrive assessed: 01/07/25 I am a: Patient What is your living situation today?: I have a steady place to live Within the past 12 months, did the food you bought not last and you didn't have the money to get more?: Never true Within the past 12 months, did you worry whether your food would run out before you got money to buy more?: Never true Do you have trouble paying for medicines?: No Do you have trouble getting transportation to medical appointments?: No Do you have trouble paying your heating and electricity bill?: No Do you have trouble taking care of your child, family member or friend?: No Do you have trouble with day-to-day activities such as bathing, preparing meals, shopping, managing finances, etc.?: No Are you currently unemployed and looking for a job?: No Are you interested in more education?: No Please select the resources that you would like help with: None Currently or been in a relationship where the following occur: No concerns reported THRIVE Score: 0 AUDIT C Alcohol Use Questionnaire (AUDIT-C) 1. How often do you have a drink containing alcohol?: Never 3. How often do you have six or more drinks on one occasion?: Never Total Score: 0 SANTIAGO-7 AMB Questionnaire SANTIAGO-7 Date SANTIAGO - 7 assessed: 01/07/25 Feeling nervous, anxious, or on edge: 0 = Not at all Not being able to stop or control worryin = Not at all Worrying too much about different things: 0 = Not at all Trouble relaxin = Not at all Being so restless that it is hard to sit still: 0 = Not at all Becoming easily annoyed or irritable: 0 = Not at all Feeling afraid as if something awful might happen: 0 = Not at all Total SANTIAGO-7 score (0-4 normal; 5-9 mild; 10-14 moderate; 15-21 severe): 0 Source: Developed by Drs. Owen Malhotra, Tiff Collado, Thien Ivey and colleagues, with an educational mellisa from [employer]. SANTIAGO-7 Assessment Billing SANTIAGO-7 Assessment Tool: SANTIAGO-7 Assessment 96120 Review of Systems Const Denies body aches, Denies fatigue, Denies fever(s), Denies frequent falls, Denies headache(s) and Denies weakness Eyes Reports no additional complaints and Denies change in vision ENT Denies dysphagia, Denies dizziness, Denies facial pain, Denies headache(s), Denies nasal congestion and Denies odynophagia Card Denies chest pain, Denies syncope, Denies irregular heart rhythm, Denies leg edema, Denies lightheadedness and Denies dyspnea Resp Denies cough and Denies dyspnea GI Denies abdominal pain, Denies constipation, Denies dysphagia, Denies dyspepsia, Denies diarrhea, Denies nausea, Denies odynophagia and Denies vomiting Denies urinary frequency, Denies dysuria, Denies urinary hesitancy, Denies urinary urgency, Denies vaginal discharge and Denies vaginal dryness Musc Denies back pain and Denies myalgias Skin/Breast Reports system reviewed and no additional complaints, except as documented Neuro Denies dizziness, Denies syncope, Denies frequent falls, Denies headache(s) and Denies weakness Psych Reports no additional complaints Endo Denies fatigue Physical exam (Primary Care) Vital Signs: Oxygen Delivery Method Room Air 01/07/25 09:06 BMI Assessment/Plan discussion: High BMI High, discussed plan: lifestyle, dietary and physical activity Tobacco/Smoking Status: Tobacco use Status Tobacco use date assessed 01/03/24 05/08/24 11:32 Patient Tobacco Use Status Never used Tobacco 08/13/24 10:23 e-Cigarette/Vaping Use Never Used 05/08/24 11:32 Depression Screening Interpretation: Negative Thrive Assessment: Date of Thrive Assessment Date Thrive assessed 01/07/25 01/07/25 00:28 Currently or been in a relationship where the following occur: No concerns reported Const General: cooperative, healthy appearing, comfortable and no acute distress Orientation/consciousness: patient oriented x3 HENMT Head: Yes normocephalic Ears: hearing grossly normal bilaterally, external ears normal, TM's normal bilaterally and EAC's normal General nose exam: Normal external nose present Face and sinus: Yes normal facial exam and Yes sinuses nontender Mouth: Normal oral and palatal mucosa present and tongue normal Throat: Yes posterior oropharynx normal Eyes General: appearance normal, both eyes and all related structures Conjunctivae: conjunctivae normal Pupils: Equal, round and reactive pupils present EOM: EOMs intact bilaterally and No Nystagmus present Neck Neck: Yes normal visual inspection, Yes full ROM and Yes no lymphadenopathy Chest Chest palpation & inspection: normal inspection of the chest Resp Effort & Inspection: normal respiratory effort Auscultation: clear to auscultation bilaterally, no crackles, no rales, no rhonchi, no wheezes and breath sounds present Cardio Rate: regular rate Rhythm: regular rhythm Peripheral pulses: radial pulses present and dorsalis pedis present GI Inspection: Yes normal to inspection and No Abdominal wall edema Palpation (GI): Soft to palpation, not firm and nontender Auscultation: normal bowel sounds Rectal Exam - Female: deferred General: Yes no CVA tenderness Back/Spine/Pelvis Back: no CVA tenderness Skin General skin exam: no rashes or lesions noted Neuro General: patient oriented x3 Cranial nerves: Yes Equal, round and reactive pupils present, Yes Midline tongue present, Yes Ability to bilaterally elevate shoulders present and No Nystagmus present Gait exam (Neuro): Normal gait present Extrem General: Yes normal to inspection, Yes full ROM, No no pedal edema and No edema Psych Speech and movement: Normal speech and movement present Affect: normal affect Insight: Good insight present (Psych) Judgement: Good judgement present (Psych) Coding Level of Care Code Est Pt Prev Care 40-64y(04331) Diagnoses Annual physical exam Z00.00 Generalized anxiety disorder F41.1 Hypercholesterolemia E78.00 Impaired glucose tolerance R73.02 Overweight (BMI 25.0-29.9) E66.3 Vitamin D deficiency E55.9 BPPV (benign paroxysmal positional vertigo) H81.10 Tinnitus of both ears H93.13 Laterality: bilateral Mammogram declined Z53.20 Additional Codes SANTIAGO-7 Assessment Billing - SANTIAGO-7 Assessment Tool: SANTIAGO-7 Assessment 47155 ([id number]) PHQ-9 - 65387 - PHQ-9 Billing: Yes ([id number]) Assessment & Plan Assessment & Plan (1) Annual physical exam: Code(s): Z00.00 - Encounter for general adult medical examination without abnormal findings Category: Medical Plan: Patient is overdue for several screenings including mammogram and colonoscopy. She is declining mammogram today and understands the risk not having this screening test performed. She is declining a colonoscopy as well but is open to a Cologuard test which was ordered today. She is overdue for blood work which has been ordered as well. Healthy diet and regular exercise is encouraged. Plan to follow up yearly or sooner as needed or pending blood work evaluation. (2) Generalized anxiety disorder: Code(s): F41.1 - Generalized anxiety disorder Category: Medical Plan: Feels good without medication and counseling. She will reach out should this change. (3) Hypercholesterolemia: Code(s): E78.00 - Pure hypercholesterolemia, unspecified Category: Medical Plan: Avoid foods that are high in cholesterol such as red meat, fried foods, eggs and baked goods. Triglyceride goal of less than 150 and LDL goal of less than 130. Not currently on medical management reminded patient about blood work (4) Impaired glucose tolerance: Code(s): R73.02 - Impaired glucose tolerance (oral) Category: Medical Plan: Decrease the amount of carbohydrates such as pasta, bread, rice, and potatoes and limit the amount of sweets. Although fruits are generally healthy they should be eaten in moderation as they are still high in sugar. Working with nutrition we will repeat A1c (5) Overweight (BMI 25.0-29.9): Code(s): E66.3 - Overweight Category: Medical Plan: Healthy diet and regular exercise is encouraged. No longer seeing nutrition. (6) Vitamin D deficiency: Code(s): E55.9 - Vitamin D deficiency, unspecified Category: Medical Plan: Ordered for updated blood work (7) BPPV (benign paroxysmal positional vertigo): Code(s): H81.10 - Benign paroxysmal vertigo, unspecified ear Category: Medical Plan: Underwent vestibular therapy and has not had any recurrence since. Still working with chiropractor. (8) Tinnitus: Code(s): H93.19 - Tinnitus, unspecified ear Category: Medical Qualifiers: Laterality: bilateral Qualified Code(s): H93.13 - Tinnitus, bilateral Plan: Seen by ear nose and throat advised to avoid high salt intake, stay well hydrated and avoid NSAIDs. (9) Mammogram declined: Comment: January 2025 Code(s): Z53.20 - Procedure and treatment not carried out because of patient's decision for unspecified reasons Category: Medical Plan: Understands the risks of not having the screening performed. Continues to decline. Plan The patient will complete a Cologuard test for colon cancer screening, with the kit being sent to her home. Fasting blood work is ordered to update her health status, to be completed in the next few weeks. She is advised to stay hydrated to prevent kidney stones and to continue her exercise routine, including walking and stair use. Increasing water and fiber intake is recommended to manage constipation. Follow-up will depend on blood work results, and she should return for annual wellness visits. This note was constructed using voice recognition software. While every effort has been made to ensure accuracy and cable splicing technician, still areas may have been included sometimes these areas may affect the content or meeting of the given symptoms. Total time spent caring for the patient today was 30 minutes. This includes time spent before the visit reviewing the chart, time spent during the visit, and time spent after the visit and documentation. Patient was informed and verbally consented to the use of an ambient scribe for clinic note documentation during this visit. Orders: Orders Hemoglobin A1c Today R73.02 - Impaired glucose tolerance (oral) Lipid Panel Today E78.00 - Pure hypercholesterolemia, unspecified Vitamin D 25-OH Total Today E55.9 - Vitamin D deficiency, unspecified, Z00.00 - Encounter for general adult medical examination without abnormal findings Vitamin B12 and Folate Today E55.9 - Vitamin D deficiency, unspecified, Z13.21 - Encounter for screening for nutritional disorder TSH reflex Free T4 Today R53.83 - Other fatigue, Z00.00 - Encounter for general adult medical examination without abnormal findings Free T4 (Free Thyroxine) Today R53.83 - Other fatigue, Z00.00 - Encounter for general adult medical examination without abnormal findings Comprehensive Met. Panel Today R73.02 - Impaired glucose tolerance (oral), Z00.00 - Encounter for general adult medical examination without abnormal findings Complete Blood Count Auto Diff Today H81.10 - Benign paroxysmal vertigo, unspecified ear, Z00.00 - Encounter for general adult medical examination without abnormal findings Referrals Cologuard Test Z12.11 - Encounter for screening for malignant neoplasm of colon, Z12.12 - Encounter for screening for malignant neoplasm of rectum
[2025-01-07 09:06] VITALS: BP 98/54; PULSE 63; O2SAT 98; BMI 25.5
[2025-01-07 09:34] VITALS: BP 100/68
== END 2025-01-07 09:39 | disposition home or self-care (01) ==
LOC: HO.HMCH 08:55
DX: Z00.00 Encounter for general adult medical examination without abnormal findings (principal); F41.1 Generalized anxiety disorder; E78.00 Pure hypercholesterolemia, unspecified; R73.02 Impaired glucose tolerance (oral); E66.3 Overweight; E55.9 Vitamin D deficiency, unspecified; H81.10 Benign paroxysmal vertigo, unspecified ear; H93.13 Tinnitus, bilateral; Z53.20 Procedure and treatment not carried out because of patient's decision for unspecified reasons

== ENCOUNTER → 2025-01-07 08:54 | Outpatient (BNVA) | payer OTHER, SELFPAY | DX: Z00.00 Encounter for general adult medical examination without abnormal findings (principal); F41.1 Generalized anxiety disorder; E78.00 Pure hypercholesterolemia, unspecified; R73.02 Impaired glucose tolerance (oral); E66.3 Overweight; Z68.25 Body mass index [BMI] 25.0-25.9, adult; E55.9 Vitamin D deficiency, unspecified; H81.10 Benign paroxysmal vertigo, unspecified ear; H93.13 Tinnitus, bilateral; Z13.31 Encounter for screening for depression; Z13.39 Encounter for screening examination for other mental health and behavioral disorders | CPT/HCPCS: 96127; 99396 ==

== ENCOUNTER 2025-02-28 02:18 | Emergency (ER) | payer OTHER, SELFPAY ==
[2025-02-28 02:27] VITALS: BP 135/70; PULSE 83; RESP 16; TEMP 36.7; O2SAT 98; BMI 26.1
--- NOTE | 2025-02-28 02:45 | ED_ITS ---
HPI - Skin/Abscess/Foreign Bdy General Chief complaint: Skin/Abscess/Foreign Body Stated complaint: Cyst on Buttocks Time Seen by Provider: 02/28/25 02:44 Source: patient Mode of arrival: ambulatory Limitations: no limitations History of Present Illness ED Provider: João ARAUZ HPI narrative: The patient is a 59-year-old female presenting to the ED for evaluation of a cyst of the right inner thigh. Patient reports approximately 1-2 months ago she developed a cyst of the right inner thigh which she attempted to express result in an rupture of the skin followed by small ulceration which she treated with alcohol, hydrogen peroxide, and bacitracin. Patient reports the area appeared to have healed however over the past week became more painful/tender. The patient reports she saw a small area of white head and today attempted to drain the area with a needle. The patient denied any drainage, presents to the ED for evaluation. Patient denies associated fever/chills, nausea, vomiting, or other systemic complaint. The patient has not taken any recent antibiotics. Related Data Previous Rx's ?Medication ?Instructions ?Recorded cephalexin 500 mg capsule 500 mg PO QID #28 caps 02/28 ibuprofen 600 mg tablet 600 mg PO Q8H PRN fever or p ain 02/28/25 #30 tabs Allergies Allergy/AdvReac Type Severity Reaction Status Date / Time fluticasone (Flonase) Allergy Unknown Unknown Verified 02/28/25 02:27 From FLONASE Allergy Severe HIVES Uncoded 02/28/25 02:27 IV dye Allergy Intermediate Hives Uncoded 02/28/25 02:27 Flonase Allergy Unknown Hives/Swell Uncoded 02/28/25 02:27 ing Review of Systems 2 Review of Systems: Yes all other systems are reviewed and are negative [facility] Past Medical History Medical History Dysuria AFLP (acute fatty liver of ) Mammogram declined Toe fracture, left Melasma Pituitary microadenoma Peripheral neuropathy Hypercholesterolemia Vitamin D deficiency Overweight (BMI 25.0-29.9) Hot flashes Surgical History Hx of tubal ligation [place] teeth extracted Family History Family History Father CAD (coronary artery disease) Mother No problems noted. Social History Social History Housing: Apartment Alcohol intake: never Patient Tobacco Use Status: Never used Tobacco e-Cigarette/Vaping Use: Never Used Second Hand Smoke Exposure: No Advance Directives: No Advance Directives Information Provided: Yes Current occupational status: employed Cognitive needs: No Hearing needs: No Vision needs: No Physical Exam 2 Vital Signs: Vital Signs: Last Vital Signs Temp 98.0 F 02/28/25 02:27 Pulse 83 02/28/25 02:27 Resp 16 02/28/25 02:27 BP 135/70 02/28/25 02:27 Pulse Ox 98 02/28/25 02:27 O2 Del Method Room Air 02/28/25 02:27 BMI result Body Mass Index 26.1 CONSTITUTIONAL: The patient appears non-toxic, well nourished and in no acute distress. Vital signs as documented. HEAD: Atraumatic, normocephalic. EYES: EOMs grossly intact, pupils equal, conjunctiva clear, no exudate. ENT: Nares patent, no discharge. Airway patent, no audible stridor, visible mucosa is pink and moist without noted lesions. NECK: trachea is midline, no obvious masses or gross abnormalities. CHEST: Symmetric movement, normal appearance. LUNGS: Non-labored work of breathing. CARDIAC: No evidence of hypoperfusion. ABDOMEN: Nondistended, no obvious injury. : Deferred. EXTREMITIES: Moves all extremities spontaneously without reported pain. No obvious injury or deformity noted. NEURO: Alert and oriented x3, CN II-XII appear grossly intact. Cerebellar Functioning grossly intact. Speech clear and appropriate. SKIN: Warm, dry, color appropriate. There is an approximate 4-5 mm diameter, minimally raised, dark colored papule with no obvious fluctuance or purulence, noted to the right proximal medial thigh. No active drainage or open wound. Bedside ultrasound reveals a small area of induration with a 2 mm x 3 mm superficial area of fluid collection, no large fluid collection, no indication for incision and drainage. Findings are consistent with likely furuncle. No other rashes or lesions noted. Medical Decision Making Medical Decision Making MDM Narrative: 2:56 AM 02/28/2025 (Charmaine ARAUZ): The patient is a 59-year-old female presenting to the ED for evaluation of a cyst of the right inner thigh. Patient reports approximately 1-2 months ago she developed a cyst of the right inner thigh which she attempted to express result in an rupture of the skin followed by small ulceration which she treated with alcohol, hydrogen peroxide, and bacitracin. Patient reports the area appeared to have healed however over the past week became more painful/tender. The patient reports she saw a small area of white head and today attempted to drain the area with a needle. The patient denied any drainage, presents to the ED for evaluation. Patient denies associated fever/chills, nausea, vomiting, or other systemic complaint. The patient has not taken any recent antibiotics. On exam the patient has an approximate 4-5 mm diameter, minimally raised, dark colored papule with no obvious fluctuance or purulence, noted to the right proximal medial thigh. No active drainage or open wound. Bedside ultrasound reveals a small area of induration with a 2 mm x 3 mm superficial area of fluid collection, no large fluid collection, no indication for incision and drainage. Findings are consistent with likely furuncle. Patient will be treated with anti- inflammatories, cephalexin, and topical bacitracin. Admission/Observation Consideration of admission/observation: Escalation of care including admission/observation considered Lab Data MDM Lab Attestation statement: I reviewed the patient's lab results. 02/28/25 02:43 02/28/25 02:43 Labs: Lab Results 02/28/25 Range/Units 02:43 WBC 7.8 (4.8-10.8) X10*3/uL RBC 4.35 (4.20-5.50) X10*6/uL Hgb 12.5 (12.0-16.0) g/dl Hct 36.2 L (37.0-47.0) % MCV 83.2 (80.0-98.0) fL MCH 28.7 (27.0-33.0) pg MCHC 34.5 (31.0-35.0) g/dl RDW 13.8 (11.0-16.0) % Plt Count 259 (160-400) X10*3/uL MPV 10.7 (9.4-12.3) fL Immature Gran % (Auto) 0.3 (0.0-0.4) % Neut % (Auto) 37.2 L (45-73) % Lymph % (Auto) 49.8 H (20-40) % [place] % (Auto) 9.2 (2-11) % Eos % (Auto) 2.7 (0-4) % Baso % (Auto) 0.8 (0-2) % Lymph # (Auto) 3.9 (1.2-4.9) X10*3/uL [place] # (Auto) 0.7 (0.1-1.2) X10*3/uL Eos # (Auto) 0.2 (0.0-0.4) X10*3/uL Baso # (Auto) 0.1 (0.0-0.2) X10*3/uL Abs Immat Gran (auto) 0.02 (0.00-0.03) X10*3/uL Absolute Neuts (auto) 2.9 (2.0-8.3) x10*3/uL Absolute Nucleated RBC 0.000 (0.0-0.012) X10*3/uL Nucleated RBC % (auto) 0.0 (0.0-0.2) /100WBC Sodium 141 (135-145) mmol/L Potassium 3.9 (3.3-5.1) mmol/L Chloride 104 (96-108) mmol/L Carbon Dioxide 27 (22-29) mmol/L Anion Gap 14 (12-20) BUN 15 (9-16) mg/dL Creatinine 0.98 (0.5-1.4) mg/dL Estim Creat Clear Calc 60.4 Estimated GFR 58 Random Glucose 112 (60-115) mg/dL Calcium 9.4 D (8.4-10.2) mg/dL Total Bilirubin 0.4 (0.0-1.0) mg/dL AST 23 (5-31) U/L ALT 17 (0-31) U/L Alkaline Phosphatase 57 (39-117) U/L Total Protein 8.0 (6.5-8.0) g/dL Albumin 4.6 (3.5-5.0) g/dL Discharge Plan Discharge Clinical Impression: Furuncle of right thigh Patient Disposition: Home, Self-Care Instructions: Furunculosis and Carbunculosis (ED) Additional Instructions: Thank you for choosing [facility]'s Emergency Department for your care today. Thankfully your laboratory evaluation, exam, and bedside ultrasound today are reassuring. At this time there is no indication for admission to the hospital or continued ED observation, and it is safe to discharge you home. Your right proximal thigh demonstrates a small area of induration consistent with a furuncle, which is a infected hair follicle. Please apply warm moist compresses to the area every hour to promote expression of any infected material. Please do not squeeze the area with the your fingers or another device, and do not poke were cut the area with a needle or other sharp object. Please continue applying bacitracin and a Band-Aid over the area. We are also treating you with an antibiotic called cephalexin, please take this as prescribed until it is finished. You may take alternating (staggered) doses of ibuprofen 600mg and Tylenol 1000mg every 4 hours as needed for any additional swelling, irritation, or pain. Please stay well hydrated and get plenty of rest. Please follow up with your primary care physician for re-evaluation, additional management of your symptoms, referral to dermatology as deemed appropriate, and continued preventative care. If you do not have a primary care physician, please call the [facility] at [phone] to establish a new primary care physician. While waiting to establish your new primary care physician, you can call our Walk-in [facility] at [phone] for non-emergency needs. Please return to the emergency department if you develop a severe or sudden change in your symptoms, a fever over 100.4 that does not improve with Tylenol or Ibuprofen, recurrent vomiting, or any other new or worsening symptoms or concerns. Prescriptions: New cephalexin 500 mg capsule 500 mg PO QID Qty: 28 0RF ibuprofen 600 mg tablet 600 mg PO Q8H PRN (Reason: fever or pain) Qty: 30 0RF Referrals: Jailene Valera PA-C [Primary Care Provider, Internal Medicine] Clinical Impression: Furuncle of right thigh Print Language: Mongolian
[2025-02-28 02:48] LABS: MANUAL DIFF FLAG NO
[2025-02-28 02:49] LABS: Hematocrit 36.2 % (37.0-47.0); Hemoglobin 12.5 g/dl (12.0-16.0); Imm Gran Abs Auto 0.02 X10*3/uL (0.00-0.03); Imm Gran Pct Auto 0.3 % (0.0-0.4); Lymphocytes Absolute Auto 3.9 X10*3/uL (1.2-4.9); Mean Corpuscular HGB Conc 34.5 g/dl (31.0-35.0); Mean Corpuscular Hemoglobin 28.7 pg (27.0-33.0); Mean Corpuscular Volume 83.2 fL (80.0-98.0); NRBC Abs Auto 0.000 X10*3/uL (0.0-0.012); NRBC Pct Auto 0.0 /100WBC (0.0-0.2); Platelet Count 259 X10*3/uL (160-400); Red Blood Count 4.35 X10*6/uL (4.20-5.50); White Blood Count 7.8 X10*3/uL (4.8-10.8)
[2025-02-28 03:00] VITALS: BP 135/70; PULSE 83; RESP 16; TEMP 36.7; O2SAT 98
[2025-02-28 03:02] LABS: Alanine Aminotransferase 17 U/L (0-31); Albumin Level 4.6 g/dL (3.5-5.0); Alkaline Phosphatase 57 U/L (39-117); Anion Gap 14 (12-20); Aspartate Amino Transferase 23 U/L (5-31); Blood Urea Nitrogen 15 mg/dL (9-16); Calcium 9.4 mg/dL (8.4-10.2); Carbon Dioxide 27 mmol/L (22-29); Chloride 104 mmol/L (96-108); Creatinine Clr Calc Pharmacy 60.4; Estimated Glomerular Filt Rate 58; Potassium 3.9 mmol/L (3.3-5.1); Sodium 141 mmol/L (135-145); Total Protein 8.0 g/dL (6.5-8.0)
--- OUTSIDE RECORDS SUMMARY | 2025-02-28 03:13 | XMS_ITS | Data Portability ---
Author Organization [place] - [facility], Allergy Address [address] [place] [id number] Care Team Providers Care Sales Service Rep Name Role Phone JUSTUS CUTLER Primary Care Provider [phone] Assessment No assessment recorded. Plan of Treatment Reminders Order Date Submit Date Provider Last Modified By Organization Details Last Modified Time Details Appointments None record ed. Lab None record ed. Referral None record ed. Procedures None record ed. Surgeries None record ed. Imaging None record ed. Medication Orders None record ed. Patient TargetsNo targets recorded. Patient InstructionsNo instructions [...] Sensorineur al hearing loss of bilateral ears [id number] Active 2023 GIRMA HATHAWAY [address], [address], [facility] 4 13:43:50 Bilateral tinnitus [id number] Active 2023 BAM ZELAYA MD [address] [place] [address], [place], [address], [facility] 4 13:55:46 Problem Notes None recorded. Procedures Surgical History Date Name Laterality Status Provider Name and Address Organization Details Recorded Time 4 Comp Audio with Tymps - 16570 & 26860 completed GIRMA HATHAWAY [address] [facility],[place] [address], [place], [address], [facility] - [facility] 04/04/2024 13:43:35 ligation of fallopian tube completed BAM MUNOZ MD [address] [facility],[place] [address], [place], [address], [place] - [facility] 04/04/2024 13:53:06 surgical removal of third molar tooth completed BAM MUNOZ MD [address] [facility] [address], [place], [address], [place] [facility] 04/04/2024 13:53:19 Imaging Results None recorded. Procedure Notes None recorded. Medical Equipment None Reported. Allergies Allergen ID Allergen Name Allergen Category Reaction Reaction Severity Criticality Documentation Date Start Date Code Code System Note Provider Name and Address Organization Details Recorded Time 293499 Flonase medicatio n Not available Not available Not available 04/04/2024 76358 RxNorm Eunice foley [place] [facility] 13:48:45 Medications Name Sig Start Date Stop [...] completed Not Available Not Available Not Available ciprofloxac in 500 mg tablet TAKE 1 TABLET BY MOUTH EVERY 12 HOURS FOR 3 DAYS active Not Available Not Available No t Available meclizine 25 mg tablet TAKE 1 [...] Updated DateTime 04/04/2024 162.56 cm 27.3 kg/m2 19765.19 g Eunice Ballard [facility] 04/04/2024 13:48:36 Social History None recorded. Functional Status None recorded. Mental Status None recorded. Family History Nothing Reported. Medical History Condition Response Anemia Y Migraines Y Gynecological HistoryNo gynecological history recorded. Obstetrics History GPAL:G 0 P 0 0 0 0 Past Encounters Encounter ID Performer Location Encounter Start Date Encounter Closed Date Diagnosis/Indication Diagnosis SNOMED-CT Code Diagnosis ICD10 Code Diagnosis IMO Codes Diagnosis Note [id number] BAM HYLTON MD [facility] [address] [address] 04/04/2024 13:09:24 04/04/2024 14:02:52 Sensorineural hearing loss of bilateral ears 417573092 H90.3 Audiologic al evaluation results: Right ear: Normal sloping to a mild sensorineu ral hearing loss with excellent word recognitio n. Left ear: Normal sloping to a mild sensorineu ral hearing loss with excellent word recognitio n. Tympanomet ry: Right Ear:Type A Left Ear:Type A Bilateral tinnitus 71856 83241 102 H93.13 Today we discussed the pathophysi ology of tinnitus and the absence of consistent ly successful pharmacolo gic treatments for tinnitus. We discussed masking strategies to decrease awareness of the tinnitus, including using a white noise machine, music, [employer] tinnitus rashard or television . We discussed [...] Recorded Advance Directives Directive None Recorded Payers Insurance Date Sequence Insurance Name Policy Number Policy Mccarty Covered Member ID Mccarty Member ID Guarantor Name 10/03/2024 1 [facility] [employer] (MEDICAID REPLACEMENT - HMO) TATIANNA Brantley [id number] Sasha Salinas Notes Date Note Type Note [...] but drinking green tea BAM MUNOZ MD [address] [facility],[place] [address], [place], [address], [place] [facility] 04/04/2024 15:25:19 OBGyn Episode No OBEpisode recorded.
[2025-02-28 03:42] VITALS: BP 135/70; PULSE 83; RESP 16; TEMP 36.7; O2SAT 98
== END 2025-02-28 03:44 | disposition home or self-care (01) ==
PROVIDERS: Emergency Provider Emergency Medicine
DX: L02.425 Furuncle of right lower limb (principal)
CPT/HCPCS: 36415; 80053; 85025; 99283; 99284

== ENCOUNTER 2025-05-06 09:52 | Outpatient (AMB) | payer OTHER, SELFPAY ==
[2025-05-06 10:10] VITALS: BP 128/80; PULSE 67; RESP 18; O2SAT 98; BMI 25.0
--- NOTE | 2025-05-06 10:10 | A.OFFPC_ITS ---
Vital Signs 05/06/25 10:10 Height 5 ft 5 in Weight 150 lb BMI 25.0 BP 128/80 Blood Pressure Location Lt brachial Position Sitting Respiration 18 Pulse 67 Pulse Source Pulse Oximeter Temp Source Temporal Artery Scan Pulse Oximetry (%) 98 Oxygen Delivery Method Room Air Intake Visit Reasons: sure throat, phlegm Telegraph Mechanic Required: No Accompanied by: Self / Same As Patient Allergies fluticasone (Flonase) Allergy (Unknown, Verified 05/06/25 10:23) Unknown From FLONASE Allergy (Severe, Uncoded 05/06/25 10:23) HIVES IV dye Allergy (Intermediate, Uncoded 05/06/25 10:23) Hives Flonase Allergy (Unknown, Uncoded 05/06/25 10:23) Hives/Swelling Medication List - Last Reconciled 05/06/25 by ELIE Avilez ibuprofen 600 mg PO Q8H PRN Tobacco use date assessed: 05/06/25 Dental Screening Dental Screen Date: 05/06/25 Did you have a dental visit in the last 12 months?: No Did you have a dental problem in the last 6 months where you did not have access to dental care?: No Was dental information given to patient?: Patient has dentist HPI sure throat, phlegm HPI Details The patient reports that on Thanksgi night she started feeling chills, stuffy and had a mild sore throat The patient reports that she does not know if she has allergies; per chart, review the patient is allergic to flonase inhaler (admitted to puffiness in her face after taking this medication) She is currently taking care of cat and cleaning the litter Reports that she started feeling better and the sore throat is very mild at this time Denies headaches, earaches, coughing or body aches Reports PND that is worsens at bedtime that improves with her sitting up in bed The patient denies sob, but reports that at times she does feel sob with a whi stling sound She has not taken anything for her symptoms and was not tested for any viral infections [facility] Medical History Dysuria AFLP (acute fatty liver of ) Mammogram declined Toe fracture, left Melasma Pituitary microadenoma Peripheral neuropathy Hypercholesterolemia Vitamin D deficiency Overweight (BMI 25.0-29.9) Hot flashes Surgical History Hx of tubal ligation [place] teeth extracted Family History Father CAD (coronary artery disease) Mother No problems noted. Social History Housing: Apartment Alcohol intake: never Patient Tobacco Use Status: Never used Tobacco e-Cigarette/Vaping Use: Never Used Second Hand Smoke Exposure: No Current occupational status: employed Cognitive needs: No Hearing needs: No Vision needs: No Questionnaire Thrive Questionnaire Date Thrive assessed: 01/07/25 I am a: Patient What is your living situation today?: I have a steady place to live Within the past 12 months, did the food you bought not last and you didn't have the money to get more?: Never true Within the past 12 months, did you worry whether your food would run out before you got money to buy more?: Never true Do you have trouble paying for medicines?: No Do you have trouble getting transportation to medical appointments?: No Do you have trouble paying your heating and electricity bill?: No Do you have trouble taking care of your child, family member or friend?: No Do you have trouble with day-to-day activities such as bathing, preparing meals, shopping, managing finances, etc.?: No Are you currently unemployed and looking for a job?: No Are you interested in more education?: No Please select the resources that you would like help with: None Currently or been in a relationship where the following occur: No concerns reported THRIVE Score: 0 SANTIAGO-7 AMB Questionnaire SANTIAGO-7 Date SANTIAGO - 7 assessed: 01/07/25 Source: Developed by Drs. Owen Malhotra, Tiff Collado, Thien Ivey and colleagues, with an educational mellisa from [employer]. Review of Systems Const Denies body aches, Denies chills, Denies fever(s), Denies headache(s) and Denies poor appetite Eyes Denies eye discharge, Denies irritation and Denies itchy eyes ENT Denies change in voice, Denies dysphagia, Denies dizziness, Denies headache(s), Reports nasal congestion, Reports nasal discharge, Denies odynophagia, Denies sinus pain and Reports sore throat (mild) Card Denies chest pain, Denies syncope, Denies edema, Denies irregular heart rhythm, Denies lightheadedness and Reports dyspnea (intermittently mild; not today) Resp Denies cough, Reports dyspnea (intermittently mild; not today) and Reports wheezing (not now, but intermittently) GI Denies abdominal pain, Denies constipation, Denies dysphagia, Denies diarrhea, Denies nausea, Denies odynophagia and Denies vomiting Reports no additional complaints Musc Reports no additional complaints and Denies abnormal gait Skin/Breast Reports system reviewed and no additional complaints, except as documented Neuro Denies abnormal gait, Denies dizziness, Denies syncope and Denies headache(s) Psych Reports no additional complaints Aller/Immun Denies itchy eyes and Reports wheezing (not now, but intermittently) Physical exam (Primary Care) Vital Signs: Last Vital Signs Pulse 67 05/06/25 10:10 Resp 18 05/06/25 10:10 BP 92/60 05/06/25 10:10 Pulse Ox 98 05/06/25 10:10 Oxygen Delivery Method Room Air 05/06/25 10:10 BMI result Body Mass Index 25.0 Tobacco/Smoking Status: Tobacco use Status Tobacco use date assessed 05/06/25 05/06/25 10:18 Patient Tobacco Use Status Never used Tobacco 05/06/25 10:18 e-Cigarette/Vaping Use Never Used 05/06/25 10:18 Thrive Assessment: Date of Thrive Assessment Date Thrive assessed 01/07/25 05/06/25 10:18 Currently or been in a relationship where the following occur: No concerns reported Const General: cooperative, healthy appearing, comfortable and no acute distress Orientation/consciousness: patient oriented x3 HENMT Head: Yes normocephalic Ears: hearing grossly normal bilaterally General nose exam: Abnormal mucous membranes and turbinates present boggy bilateral and erythematous bilateral and Nasal discharge present clear (with tinge of yellowish in both nostrils) Face and sinus: Yes sinuses nontender Mouth: Normal oral and palatal mucosa present Throat: Yes posterior oropharynx normal Eyes General: appearance normal, both eyes and all related structures Conjunctivae: conjunctivae normal Neck Neck: Yes full ROM and Yes no lymphadenopathy Resp Effort & Inspection: normal respiratory effort Auscultation: clear to auscultation bilaterally, no crackles, no rales, no rhonchi and no wheezes Cardio Rate: regular rate Rhythm: regular rhythm Skin General skin exam: no rashes or lesions noted Neuro General: patient oriented x3 Gait exam (Neuro): Normal gait present Extrem General: Yes normal to inspection, Yes full ROM and No edema Psych Affect: normal affect Attitude: cooperative Insight: Good insight present (Psych) Judgement: Good judgement present (Psych) Coding Level of Care Code Est Pt Level 4 (26453) Diagnoses Seasonal allergic rhinitis due to pollen J30.1 Allergic rhinitis trigger: pollen Allergic rhinitis seasonality: seasonal Upper respiratory tract infection, unspecified type J06.9 URI type: unspecified URI Mild intermittent asthma without complication J45.20 Asthma severity: mild Asthma persistence: intermittent Asthma complication type: uncomplicated Time Spent (min) 34 Assessment & Plan Assessment & Plan (1) Allergic rhinitis: Comment: There is no periorbital edema, conjunctivitis, cellulitis or other ocular findings noted on examination however the patient does report itchy eyes and sinus tenderness. Code(s): J30.9 - Allergic rhinitis, unspecified Category: Medical Qualifiers: Allergic rhinitis trigger: pollen Allergic rhinitis seasonality: seasonal Qualified Code(s): J30.1 - Allergic rhinitis due to pollen Plan: Limit exposure to allergens Air purifiers and dust filters Air conditioner in house, especially where sleeping Allergic to Flonase inhaler We will try the patient on mometasone inhaler PRN; stop medication for any sign of allergy and contact the office Claritin 10 mg daily PRN ordered (2) Upper respiratory infection: Code(s): J06.9 - Acute upper respiratory infection, unspecified Category: Medical Qualifiers: URI type: unspecified URI Qualified Code(s): J06.9 - Acute upper respiratory infection, unspecified Plan: Respiratory panel ordered to further evaluate (3) Asthma: Code(s): J45.909 - Unspecified asthma, uncomplicated Category: Medical Qualifiers: Asthma severity: mild Asthma persistence: intermittent Asthma complication type: uncomplicated Qualified Code(s): J45.20 - Mild intermittent asthma, uncomplicated Plan: Breath sounds clear upon auscultation Reports intermittent wheezing and shortness of breath We will order an albuterol sulfate 90 mcg inhaler 2 puffs q.4 to 6 hours p.r.n. Orders: Orders SARS-CoV2/FLU/RSV Today J06.9 - Acute upper respiratory infection, unspecified Medications: New mometasone 50 mcg/actuation administer into each nostril 2 sprays intranasal DAILY PRN 17 grams 3RF nasal congestion loratadine (Claritin) 10 mg PO DAILY PRN 90 tabs 3RF allergy symptoms albuterol sulfate 90 mcg/actuation (Ventolin HFA) 2 puffs inhalation Q4-6H PRN 8.5 grams 3RF shortness of breath or wheezing
== END 2025-05-06 10:48 | disposition home or self-care (01) ==
LOC: HO.HMCH 09:54
DX: J30.1 Allergic rhinitis due to pollen (principal); J06.9 Acute upper respiratory infection, unspecified; J45.20 Mild intermittent asthma, uncomplicated

== ENCOUNTER 2025-05-06 09:52 | Outpatient (REF) | payer OTHER, SELFPAY ==
[2025-05-06 11:34] LABS: MANUAL DIFF FLAG NO
[2025-05-06 11:47] LABS: Hematocrit 40.0 % (37.0-47.0); Hemoglobin 13.3 g/dl (12.0-16.0); Imm Gran Abs Auto 0.01 X10*3/uL (0.00-0.03); Imm Gran Pct Auto 0.2 % (0.0-0.4); Lymphocytes Absolute Auto 2.3 X10*3/uL (1.2-4.9); Mean Corpuscular HGB Conc 33.3 g/dl (31.0-35.0); Mean Corpuscular Hemoglobin 28.6 pg (27.0-33.0); Mean Corpuscular Volume 86.0 fL (80.0-98.0); NRBC Abs Auto 0.000 X10*3/uL (0.0-0.012); NRBC Pct Auto 0.0 /100WBC (0.0-0.2); Platelet Count 264 X10*3/uL (160-400); Red Blood Count 4.65 X10*6/uL (4.20-5.50); White Blood Count 4.4 X10*3/uL (4.8-10.8)
[2025-05-06 12:19] LABS: Appearance Urine Clear; Glucose Urine UA Negative (Negative); PH 5.5 (5.0-9.0); Specific Gravity - Urine 1.015 (1.005-1.025)
[2025-05-06 12:19] LABS: Resp Syncy Virus RNA Qual PCR NEGATIVE (Negative); SARS COV2 PCR INHOUSE POSITIVE (Negative)
[2025-05-06 12:34] LABS: Anion Gap 10 (12-20)
[2025-05-06 12:39] LABS: Alanine Aminotransferase 20 U/L (0-31); Albumin Level 4.7 g/dL (3.5-5.0); Alkaline Phosphatase 58 U/L (39-117); Aspartate Amino Transferase 27 U/L (5-31); Blood Urea Nitrogen 14 mg/dL (9-16); Calcium 9.3 mg/dL (8.4-10.2); Carbon Dioxide 30 mmol/L (22-29); Chloride 104 mmol/L (96-108); Cholesterol 319 mg/dL (<200); Estimated Glomerular Filt Rate > 60; HDL Cholesterol 41 mg/dL (>40); Potassium 4.4 mmol/L (3.3-5.1); Sodium 140 mmol/L (135-145); Total Protein 8.0 g/dL (6.5-8.0); Triglycerides 213 mg/dL (<150)
[2025-05-06 12:50] LABS: Free T4 (Free Thyroxine) 0.96 ng/dL (0.71-1.85)
[2025-05-06 13:03] LABS: Folate 12.6 ng/mL (> or = 4.0); Vitamin B12 524 pg/mL (200-900)
--- OUTSIDE RECORDS SUMMARY | 2025-05-06 14:21 | XMS_ITS | Data Portability ---
Author Organization [place] - [facility], Allergy Address [address] [place] [id number] Care Team Providers Care Powder Compounder Name Role Phone JUSTUS CUTLER Primary Care Provider Assessment No assessment recorded. Plan of Treatment [...] Sensorineur al hearing loss of bilateral ears [id number] Active 2023 GIRMA HATHAWAY [address], [address], [facility] 4 13:43:50 Bilateral tinnitus [id number] Active 2023 BAM ZELAYA MD [address] [place] [address], [place], [address], [facility] 4 13:55:46 Problem Notes None recorded. Procedures Surgical History Date Name Laterality Status Provider Name and Address Organization Details Recorded Time 4 Comp Audio with Tymps - 46557 & 16058 completed GIRMA HATHAWAY [address] [facility],[place] [address], [place], [address], [facility] - [facility] 04/04/2024 13:43:35 ligation of fallopian tube completed BAM MUNOZ MD 100 [facility],[place] [address], [place], [address], [place] - [facility] 04/04/2024 13:53:06 surgical removal of third molar tooth completed BAM MUNOZ MD 100 [facility] 100, [place], [address], [place] [facility] 04/04/2024 13:53:19 Imaging Results None recorded. Procedure Notes None recorded. Medical Equipment None Reported. Allergies Allergen ID Allergen Name Allergen Category Reaction Reaction Severity Criticality Documentation Date Start Date Code Code System Note Provider Name and Address Organization Details Recorded Time 306764 Flonase medicatio n Not available Not available Not available 04/04/2024 83626 RxNorm Eunice foley [place] [facility] 13:48:45 Medications Name Sig Start Date Stop [...] Updated DateTime 04/04/2024 162.56 cm 27.3 kg/m2 52203.19 g Eunice Ballard [facility] 04/04/2024 13:48:36 Social History None recorded. [...] ICD10 Code Diagnosis IMO Codes Diagnosis Note [id number] BAM HYLTON MD [facility] [address] [address] 04/04/2024 13:09:24 04/04/2024 14:02:52 Sensorineural hearing loss of bilateral ears [id number] H90.3 Audiologic al evaluation results: Right ear: Normal sloping to a mild sensorineu ral hearing loss with excellent word recognitio n. Left ear: Normal sloping to a mild sensorineu ral hearing loss with excellent word recognitio n. Tympanomet ry: Right Ear:Type A Left Ear:Type A Bilateral tinnitus 73608 96879 102 H93.13 Today we discussed the pathophysi ology of tinnitus and the absence of consistent ly successful pharmacolo gic treatments for tinnitus. We discussed masking strategies to decrease awareness of the tinnitus, including using a white noise machine, music, [employer] tinnitus rashard or television . We discussed [...] Mccarty Member ID Guarantor Name 10/03/2024 1 [facility] [employer] (MEDICAID REPLACEMENT - HMO) TATIANNA Brantley [id number] Sasha Salinas Notes Date Note Type Note [...] drinking green tea BAM MUNOZ MD [address] [facility],[place] [address], [place], [address], [place] [facility] 04/04/2024 15:25:19 OBGyn Episode No OBEpisode recorded.
== END 2025-05-06 09:53 | disposition home or self-care (01) ==
LOC: HO.LAB 09:52
PROVIDERS: Nurse Practitioner Family
DX: R30.0 Dysuria (principal); H81.10 Benign paroxysmal vertigo, unspecified ear; Z13.21 Encounter for screening for nutritional disorder; R53.83 Other fatigue; E55.9 Vitamin D deficiency, unspecified; Z00.00 Encounter for general adult medical examination without abnormal findings; E78.00 Pure hypercholesterolemia, unspecified; R73.02 Impaired glucose tolerance (oral); J30.1 Allergic rhinitis due to pollen; J06.9 Acute upper respiratory infection, unspecified; J45.20 Mild intermittent asthma, uncomplicated
CPT/HCPCS: 36415; 80053; 80061; 81003; 82306; 82607; 82746; 83036; 84439; 84443; 85025; 87637; 99212

== ENCOUNTER 2025-05-13 13:46 | Outpatient (REF) | payer OTHER, SELFPAY ==
[2025-05-13 16:15] LABS: Resp Syncy Virus RNA Qual PCR NEGATIVE (Negative); SARS COV2 PCR INHOUSE POSITIVE (Negative)
--- OUTSIDE RECORDS SUMMARY | 2025-05-13 23:27 | XMS_ITS | Data Portability ---
Author Organization [place] - [facility], Allergy Address [address] [place] [address] Care Team Providers Care Weight Reducing Technician Name Role Phone JUSTUS CUTLER Primary Care [...] Sensorineur al hearing loss of bilateral ears [id number] Active 2023 GIRMA HATHAWAY [address], [address], [facility] 4 13:43:50 Bilateral tinnitus [id number] Active 2023 BAM ZELAYA MD [address] [place] [address], [place], [address], [facility] 4 13:55:46 Problem Notes None recorded. Procedures Surgical History Date Name Laterality Status Provider Name and Address Organization Details Recorded Time 4 Comp Audio with Tymps - 64471 & 05834 completed GIRMA HATHAWAY 100 [facility],[place] [address], [place], [address], [facility] - [facility] 04/04/2024 13:43:35 ligation of fallopian tube completed BAM MUNOZ MD 100 [facility],[place] [address], [place], [address], [place] - [facility] 04/04/2024 13:53:06 surgical removal of third molar tooth completed BAM MUNOZ MD 100 [facility] 100, [place], [address], [place] [facility] 04/04/2024 13:53:19 Imaging Results None recorded. Procedure Notes None recorded. Medical Equipment None Reported. Allergies Allergen ID Allergen Name Allergen Category Reaction Reaction Severity Criticality Documentation Date Start Date Code Code System Note Provider Name and Address Organization Details Recorded Time 671617 Flonase medicatio n Not available Not available Not available 04/04/2024 67723 RxNorm Eunice foley [place] [facility] 13:48:45 Medications Name Sig Start Date [...] Updated DateTime 04/04/2024 162.56 cm 27.3 kg/m2 33270.19 g Eunice Ballard [facility] 04/04/2024 13:48:36 Social History None recorded. Functional [...] ICD10 Code Diagnosis IMO Codes Diagnosis Note [id number] BAM HYLTON MD [facility] [address] [address] 04/04/2024 13:09:24 04/04/2024 14:02:52 Sensorineural hearing loss of bilateral ears [id number] H90.3 Audiologic al evaluation results: Right ear: Normal sloping to a mild sensorineu ral hearing loss with excellent word recognitio n. Left ear: Normal sloping to a mild sensorineu ral hearing loss with excellent word recognitio n. Tympanomet ry: Right Ear:Type A Left Ear:Type A Bilateral tinnitus 30089 67241 102 H93.13 Today we discussed the pathophysi ology of tinnitus and the absence of consistent ly successful pharmacolo gic treatments for tinnitus. We discussed masking strategies to decrease awareness of the tinnitus, including using a white noise machine, music, [employer] tinnitus rashard or television . We discussed [...] Mccarty Member ID Guarantor Name 10/03/2024 1 [facility] [employer] [facility] (MEDICAID REPLACEMENT - HMO) TATIANNA Brantley [id number] Sasha Salinas Notes Date Note Type Note [...] drinking green tea BAM MUNOZ MD 100 [facility],[place] [address], [place], [address], [place] - [facility] 04/04/2024 15:25:19 OBGyn Episode No OBEpisode recorded.
== END 2025-05-13 13:47 | disposition home or self-care (01) ==
LOC: HO.LAB 13:46
PROVIDERS: Visit Provider Student in an Organized Health Care Education/Training Program
DX: U07.1 COVID-19 (principal); E78.00 Pure hypercholesterolemia, unspecified
CPT/HCPCS: 87637